=== PATIENT | female | born 1950 | race Caucasian/White ===

== ENCOUNTER 2020-08-28 11:00 | Outpatient (RCR) | payer MEDICARE, SELFPAY | END 2020-08-30 23:55 | disposition home or self-care (01) | LOC: HO.PAOS 11:00 | PROVIDERS: Visit Provider Psychologist | DX: F31.81 Bipolar II disorder (principal) | CPT/HCPCS: 90834 ==

== ENCOUNTER 2020-11-26 09:10 | Outpatient (REF) | payer MEDICARE, SELFPAY ==
[2020-11-26 10:26] LABS: Hematocrit 46.7 % (37-47); Hemoglobin 15.3 g/dl (12.0-16.0); Mean Corpuscular HGB Conc 32.8 g/dl (31.0-35.0); Mean Corpuscular Hemoglobin 31.3 pg (27.0-33.0); Mean Corpuscular Volume 95.5 fL (80-98); PLT CLUMP 1; Red Blood Count 4.89 X10*6/uL (4.20-5.50); Red Cell Distribution Width 15.3 % (11.0-16.0)
[2020-11-26 10:37] LABS: Estimated Average Glucose 100 mg/dL; Hemoglobin A1c % 5.1 %
[2020-11-26 10:40] LABS: Alanine Aminotransferase 26 U/L (0-31); Albumin Level 4.5 g/dL (3.5-5.0); Alkaline Phosphatase 110 U/L (39-117); Anion Gap 15 (12-20); Aspartate Amino Transferase 33 U/L (5-31); Bilirubin Total 0.5 mg/dL (0.0-1.0); Blood Urea Nitrogen 18 mg/dL (9-16); Calcium 9.3 mg/dL (8.4-10.2); Carbon Dioxide 23 mmol/L (22-29); Chloride 108 mmol/L (96-108); Cholesterol 212 mg/dL; Estimated Glomerular Filt Rate 46; Glucose Fasting 77 mg/dL (60-99); HDL Cholesterol 80 mg/dL; LDL Cholesterol Calculated 113 mg/dl; Potassium 4.7 mmol/L (3.3-5.1); Sodium 141 mmol/L (135-145); Total Protein 7.1 g/dL (6.5-8.0); Triglycerides 96 mg/dL
[2020-11-26 10:58] LABS: Free T4 (Free Thyroxine) 0.59 ng/dL (0.71-1.85); TSH reflex Free T4 38.73 uIU/mL (0.32-4.0)
[2020-11-26 11:00] LABS: White Blood Count 5.9 X10*3/uL (4.8-10.8)
[2020-11-27 05:32] LABS: Triiodothyronine T3 Free 1.7 pg/mL (2.3-4.2)
== END 2020-11-26 09:11 | disposition home or self-care (01) ==
LOC: HO.LAB 09:10
PROVIDERS: PCP Physician Assistant; Visit Provider Physician Assistant
DX: I25.118 Atherosclerotic heart disease of native coronary artery with other forms of angina pectoris (principal); D72.819 Decreased white blood cell count, unspecified; E03.9 Hypothyroidism, unspecified
CPT/HCPCS: 36415; 80053; 80061; 83036; 84439; 84443; 84481; 85027

== ENCOUNTER 2021-01-14 07:58 | Outpatient (REF) | payer MEDICARE, SELFPAY ==
[2021-01-14 08:33] LABS: Imm Gran Abs Auto 0.02 X10*3/uL (0.00-0.03); Imm Gran Pct Auto 0.4 % (0.0-0.4); MANUAL DIFF FLAG SCAN; PLT CLUMP 1; Red Cell Distribution Width 13.6 % (11.0-16.0); SCAN SMEAR FLAG 1
[2021-01-14 08:35] LABS: Basophils Absolute Auto 0.1 X10*3/uL (0.0-0.2); Basophils Percent Auto 1.5 % (0-2); Eosinophils Absolute Auto 0.4 X10*3/uL (0.0-0.4); Hematocrit 46.5 % (37-47); Lymphocytes Absolute Auto 2.4 X10*3/uL (1.2-4.9); Lymphocytes Percent Auto 45.1 % (20-40); Mean Corpuscular HGB Conc 32.3 g/dl (31.0-35.0); Mean Corpuscular Hemoglobin 30.9 pg (27.0-33.0); Mean Corpuscular Volume 95.9 fL (80-98); Monocytes Absolute Auto 0.5 X10*3/uL (0.1-1.2); Monocytes Percent Auto 8.3 % (2-11); Neutrophils Percent Auto 37.7 % (45-73); Red Blood Count 4.85 X10*6/uL (4.20-5.50); White Blood Count 5.4 X10*3/uL (4.8-10.8)
[2021-01-14 08:58] LABS: Alanine Aminotransferase 23 U/L (0-31); Alkaline Phosphatase 84 U/L (39-117); Anion Gap 15 (12-20); Aspartate Amino Transferase 32 U/L (5-31); Bilirubin Total 0.4 mg/dL (0.0-1.0); Blood Urea Nitrogen 17 mg/dL (9-16); Calcium 9.2 mg/dL (8.4-10.2); Carbon Dioxide 20 mmol/L (22-29); Chloride 109 mmol/L (96-108); Estimated Glomerular Filt Rate 59; Glucose Random 89 mg/dL (60-115); Potassium 4.8 mmol/L (3.3-5.1); Sodium 139 mmol/L (135-145); Total Protein 6.6 g/dL (6.5-8.0)
[2021-01-14 09:13] LABS: SLIDE REVIEW VERIFIED
[2021-01-14 09:20] LABS: TSH reflex Free T4 5.87 uIU/mL (0.32-4.0)
[2021-01-14 09:51] LABS: Free T4 (Free Thyroxine) 0.83 ng/dL (0.71-1.85)
== END 2021-01-14 07:59 | disposition home or self-care (01) ==
LOC: HO.LAB 07:58
PROVIDERS: Internal Medicine Medical Oncology; PCP Physician Assistant; Visit Provider Physician Assistant
DX: E03.9 Hypothyroidism, unspecified (principal); D72.819 Decreased white blood cell count, unspecified
CPT/HCPCS: 36415; 80053; 84439; 84443; 85025

== ENCOUNTER 2021-03-15 09:05 | Outpatient (REF) | payer MEDICARE, SELFPAY ==
[2021-03-15 10:57] LABS: Free T4 (Free Thyroxine) 0.96 ng/dL (0.71-1.85); Thyroid Stimulating Hormone 2.28 uIU/mL (0.32-4.0)
== END 2021-03-15 09:06 | disposition home or self-care (01) ==
LOC: HO.LAB 09:05
PROVIDERS: Internal Medicine; PCP Physician Assistant; Visit Provider Physician Assistant
DX: E03.9 Hypothyroidism, unspecified (principal)
CPT/HCPCS: 36415; 84439; 84443

== ENCOUNTER 2021-03-19 12:08 | Outpatient (REF) | payer MEDICARE, SELFPAY ==
[2021-03-19 13:45] LABS: Anion Gap 12 (12-20); Blood Urea Nitrogen 12 mg/dL (9-16); Calcium 9.6 mg/dL (8.4-10.2); Carbon Dioxide 20 mmol/L (22-29); Chloride 112 mmol/L (96-108); Estimated Glomerular Filt Rate > 60; Glucose Random 93 mg/dL (60-115); Potassium 4.2 mmol/L (3.3-5.1); Sodium 140 mmol/L (135-145)
[2021-03-19 13:49] LABS: B Type Natriuretic Peptide 93 pg/mL (<100)
== END 2021-03-19 12:09 | disposition home or self-care (01) ==
LOC: HO.LAB 12:08
PROVIDERS: PCP Physician Assistant; Visit Provider Physician Assistant
DX: I25.118 Atherosclerotic heart disease of native coronary artery with other forms of angina pectoris (principal)
CPT/HCPCS: 36415; 80048; 83880

== ENCOUNTER 2021-05-24 12:33 | Outpatient (REF) | payer MEDICARE, SELFPAY ==
[2021-05-24 13:31] LABS: Basophils Percent Auto 0.7 % (0-2); Eosinophils Absolute Auto 0.1 X10*3/uL (0.0-0.4); Eosinophils Percent Auto 2.5 % (0-4); Hemoglobin 15.5 g/dl (12.0-16.0); Imm Gran Abs Auto 0.02 X10*3/uL (0.00-0.03); Imm Gran Pct Auto 0.4 % (0.0-0.4); Lymphocytes Absolute Auto 2.3 X10*3/uL (1.2-4.9); MANUAL DIFF FLAG SCAN; Mean Corpuscular Hemoglobin 30.4 pg (27.0-33.0); Mean Corpuscular Volume 92.2 fL (80-98); Mean Platelet Volume 13.2 fL (9.4-12.3); Monocytes Absolute Auto 0.4 X10*3/uL (0.1-1.2); Monocytes Percent Auto 6.7 % (2-11); Neutrophils Absolute Auto 2.8 X10*3/uL (2.0-8.3); Neutrophils Percent Auto 49.7 % (45-73); PLT CLUMP 1; Red Cell Distribution Width 14.1 % (11.0-16.0); SCAN SMEAR FLAG 1
[2021-05-24 13:45] LABS: Alanine Aminotransferase 21 U/L (0-31); Albumin Level 4.3 g/dL (3.5-5.0); Alkaline Phosphatase 88 U/L (39-117); Anion Gap 14 (12-20); Aspartate Amino Transferase 27 U/L (5-31); Bilirubin Total 0.5 mg/dL (0.0-1.0); Blood Urea Nitrogen 11 mg/dL (9-16); Calcium 9.9 mg/dL (8.4-10.2); Carbon Dioxide 23 mmol/L (22-29); Chloride 110 mmol/L (96-108); Estimated Glomerular Filt Rate > 60; Glucose Random 96 mg/dL (60-115); Potassium 4.7 mmol/L (3.3-5.1); Sodium 142 mmol/L (135-145); Total Protein 6.6 g/dL (6.5-8.0)
[2021-05-24 13:48] LABS: Valproate 33.8 mcg/mL (50.0-100.0)
[2021-05-24 13:51] LABS: Platelet Count 109 X10*3/uL (160-400); White Blood Count 5.7 X10*3/uL (4.8-10.8)
[2021-05-24 13:52] LABS: SLIDE REVIEW VERIFIED
[2021-05-24 14:07] LABS: Thyroid Stimulating Hormone 2.22 uIU/mL (0.32-4.0)
[2021-05-30 13:37] LABS: Topiramate 2.9 mcg/mL (see note)
== END 2021-05-24 12:34 | disposition home or self-care (01) ==
LOC: HO.LAB 12:33
PROVIDERS: PCP Physician Assistant; Visit Provider Psychiatry & Neurology Psychiatry
DX: E03.9 Hypothyroidism, unspecified (principal); Z51.81 Encounter for therapeutic drug level monitoring; Z79.899 Other long term (current) drug therapy
CPT/HCPCS: 36415; 80053; 80164; 80201; 84443; 85025

== ENCOUNTER 2021-10-17 13:55 | Outpatient (REF) | payer MEDICARE, SELFPAY ==
[2021-10-17 14:41] LABS: Hematocrit 45.7 % (37.0-47.0); Hemoglobin 14.9 g/dl (12.0-16.0); Mean Corpuscular HGB Conc 32.6 g/dl (31.0-35.0); Mean Corpuscular Hemoglobin 30.1 pg (27.0-33.0); Mean Corpuscular Volume 92.3 fL (80.0-98.0); Mean Platelet Volume 11.6 fL (9.4-12.3); Platelet Count 153 X10*3/uL (160-400); Red Blood Count 4.95 X10*6/uL (4.20-5.50); Red Cell Distribution Width 13.4 % (11.0-16.0); White Blood Count 6.6 X10*3/uL (4.8-10.8)
[2021-10-17 14:49] LABS: Estimated Average Glucose 108 mg/dL; Hemoglobin A1c % 5.4 %
[2021-10-17 15:11] LABS: Alanine Aminotransferase 19 U/L (0-31); Albumin Level 4.1 g/dL (3.5-5.0); Alkaline Phosphatase 102 U/L (39-117); Anion Gap 11 (12-20); Aspartate Amino Transferase 21 U/L (5-31); Bilirubin Total 0.4 mg/dL (0.0-1.0); Blood Urea Nitrogen 14 mg/dL (9-16); Calcium 10.2 mg/dL (8.4-10.2); Carbon Dioxide 28 mmol/L (22-29); Chloride 105 mmol/L (96-108); Cholesterol 164 mg/dL; Estimated Glomerular Filt Rate 60; Glucose Fasting 98 mg/dL (60-99); HDL Cholesterol 57 mg/dL; LDL Cholesterol Calculated 90 mg/dl; Potassium 4.6 mmol/L (3.3-5.1); Sodium 139 mmol/L (135-145); Total Protein 6.5 g/dL (6.5-8.0); Triglycerides 85 mg/dL
[2021-10-17 16:13] LABS: Free T4 (Free Thyroxine) 1.13 ng/dL (0.71-1.85)
== END 2021-10-17 13:56 | disposition home or self-care (01) ==
LOC: HO.LAB 13:55
PROVIDERS: PCP Physician Assistant; Visit Provider Physician Assistant
DX: I25.118 Atherosclerotic heart disease of native coronary artery with other forms of angina pectoris (principal); I10 Essential (primary) hypertension; E03.9 Hypothyroidism, unspecified
CPT/HCPCS: 36415; 80053; 80061; 83036; 84439; 84443; 85027

== ENCOUNTER 2022-01-13 10:25 | Outpatient (REF) | payer OTHER, SELFPAY ==
[2022-01-13 12:12] LABS: Hematocrit 48.1 % (37.0-47.0); Hemoglobin 15.8 g/dl (12.0-16.0); Mean Corpuscular HGB Conc 32.8 g/dl (31.0-35.0); Mean Corpuscular Hemoglobin 30.7 pg (27.0-33.0); Mean Corpuscular Volume 93.6 fL (80.0-98.0); Mean Platelet Volume 12.4 fL (9.4-12.3); Platelet Count 114 X10*3/uL (160-400); Red Blood Count 5.14 X10*6/uL (4.20-5.50); Red Cell Distribution Width 14.2 % (11.0-16.0)
[2022-01-13 12:19] LABS: Alanine Aminotransferase 19 U/L (0-31); Albumin Level 4.2 g/dL (3.5-5.0); Alkaline Phosphatase 97 U/L (39-117); Anion Gap 15 (12-20); Aspartate Amino Transferase 22 U/L (5-31); Bilirubin Total 0.7 mg/dL (0.0-1.0); Blood Urea Nitrogen 12 mg/dL (9-16); Calcium 10.2 mg/dL (8.4-10.2); Carbon Dioxide 21 mmol/L (22-29); Chloride 111 mmol/L (96-108); Cholesterol 170 mg/dL; Estimated Glomerular Filt Rate > 60; Glucose Fasting 87 mg/dL (60-99); HDL Cholesterol 55 mg/dL; LDL Cholesterol Calculated 96 mg/dl; Potassium 4.7 mmol/L (3.3-5.1); Sodium 142 mmol/L (135-145); Total Protein 6.7 g/dL (6.5-8.0); Triglycerides 98 mg/dL
[2022-01-13 12:44] LABS: TSH reflex Free T4 0.72 uIU/mL (0.32-4.0)
== END 2022-01-13 10:26 | disposition home or self-care (01) ==
LOC: HO.LAB 10:25
PROVIDERS: PCP Physician Assistant; Visit Provider Physician Assistant
DX: E03.9 Hypothyroidism, unspecified (principal); I25.118 Atherosclerotic heart disease of native coronary artery with other forms of angina pectoris
CPT/HCPCS: 36415; 80053; 80061; 84443; 85027

== ENCOUNTER 2022-03-12 11:20 | Outpatient (REF) | payer OTHER, SELFPAY | END 2022-03-12 11:21 | disposition home or self-care (01) | LOC: HO.XRAY 11:20 | PROVIDERS: PCP Physician Assistant; Visit Provider Internal Medicine | DX: Z13.89 Encounter for screening for other disorder (principal) ==

== ENCOUNTER 2022-03-12 11:31 | Emergency (ER) | payer OTHER, SELFPAY ==
--- NOTE | 2022-03-12 | ECG_ITS ---
Test Reason : sob Blood Pressure : / mmHG Vent. Rate : 069 BPM Atrial Rate : 069 BPM P-R Int : 172 ms QRS Dur : 074 ms QT Int : 400 ms P-R-T Axes : 039 070 015 degrees QTc Int : 428 ms Poor data quality Normal sinus rhythm Nonspecific T wave abnormality Abnormal ECG When compared with ECG of 08-APR-2020 10:03, Poor data quality in current ECG precludes serial comparison Referred By: Charlene Ríos Electronically Signed By:POOL DAN MD
--- NOTE | ~2022-03-12 | XR_ITS ---
EXAMINATION: XR CHEST CLINICAL INFORMATION: Dyspnea COMPARISON: Chest CT March 2020 Previous chest x-ray March 2020 TECHNIQUE: Frontal view of the chest was obtained. FINDINGS: The cardiac and mediastinal contours are stable. There is a small 2 mm dense nodule in the left midlung that is stable and when compared with previous CT probably corresponds to a calcified granuloma. The lungs are otherwise clear. There is no pleural effusion or pneumothorax. There are degenerative changes of the spine and shoulders. XR/XR chest 1V IMPRESSION: No evidence for acute disease in the chest.
[2022-03-12 11:36] VITALS: PULSE 97; RESP 24; TEMP 36.6; O2SAT 98; BMI 25.8
--- NOTE | 2022-03-12 11:44 | ED.SOB ---
HPI - SOB/Dyspnea General Chief Complaint: Dyspnea Stated Complaint: sob Time Seen by Provider: 03/12/22 11:35 Source: patient Mode of arrival: other (WC from radiology ) Limitations: no limitations History of Present Illness HPI Narrative: 71 yo female with hx of bipolar disorder, hypothyroidism, HLD, heart problem but records show normal cath at [facility] 2020 comes in with c/o COVID dx 02/21 she did have 2 Pfizer vaccines. She notes that the past 4 days she has had cough, shortness of breath and mucous production. She denies any chest pain. She was in our radiology department having CXR from PCP when she had a coughing fit and shortness of breath. Sent over to ED. 97% on RA. MD elicited complaint: shortness of breath and cough Pertinent past history: other (dx with COVID 02/21 s/p Pfizer vaccine 2 doses, no treatment after diagnosis on 02/21) Onset (ago): day(s) (4) Context: recent illness and anxiety Timing: progressively worsening Severity: moderate Exacerbating factors: coughing Relieving factors: rest Known history of: other (COVID 02/21) Associated symptoms: cough and sputum production Treatment prior to arrival: none Related Data Home Medications Medication Instructions Recorded Confirmed alprazolam 0.25 mg tablet 0.25 mg PO TID 09/10/20 01/15/22 bimatoprost 0.01 % eye drops 1 drp ophthalmic (eye) 09/10/20 01/15/22 cyclosporine 0.05 % eye drops in a 1 drp ophthalmic (eye) BID 09/10/20 01/15/22 dropperette divalproex 250 mg tablet,extended 250 mg PO DAILY 09/10/20 01/15/22 release 24 hr omega-3 fatty acids 1,000 mg 1,000 mg PO DAILY 09/10/20 01/15/22 capsule (Fish Oil Concentrate) topiramate 50 mg tablet 50 mg PO DAILY 09/10/20 01/15/22 aspirin 81 mg tablet,delayed 11/26/20 01/15/22 release multivit with 1 tab PO DAILY 11/26/20 01/15/22 yuifehra-ihnd-LD-lutein 8 mg iron-400 mcg-300 mcg tablet (Centrum Silver Women) erythromycin 5 mg/gram (0.5 %) eye 0 mg ophthalmic (eye) 03/19/21 01/15/22 ointment Previous Rx's Medication Instructions Recorded rosuvastatin 40 mg tablet 40 mg PO DAILY #90 tabs 04/01/21 doxycycline hyclate 100 mg tablet 100 mg PO BID 7 days #14 tabs 10/09/21 clindamycin HCl 300 mg capsule 300 mg PO Q6H 7 days #28 caps 10/17/21 docusate sodium 100 mg capsule 100 mg PO DAILY 30 days #30 caps 10/17/21 (Colace) sennosides 8.6 mg capsule (senna) 17.2 mg PO BEDTIME 30 days #60 caps 10/17/21 amoxicillin 875 mg-potassium 1 tab PO BID 7 days #14 tabs 10/21/21 clavulanate 125 mg tablet (Augmentin) Synthroid 88 mcg tablet 88 mcg PO DAILY 90 days #90 tabs 01/23/22 (levothyroxine) albuterol sulfate 90 mcg/actuation 2 puff inhalation QID PRN 03/12/22 aerosol inhaler shortness of breath or wheezing #6.7 grams amoxicillin 875 mg-potassium 1 tab PO BID #14 tabs 03/12/22 clavulanate 125 mg tablet benzonatate 100 mg capsule 100 mg PO TID PRN cough #20 caps 03/12/22 dextromethorphan 5 mg-guaifenesin 20 ml PO Q4-6H PRN cough 7 days 03/12/22 50 mg/5 mL oral liquid (Robitussin #118 mL Cough-Chest Congestion DM) Allergies Allergy/AdvReac Type Severity Reaction Status Date / Time alendronate sodium Allergy Unknown stomach Verified 03/12/22 11:36 upset sulfamethoxazole Allergy Unknown ITCHING Verified 03/12/22 11:36 trimethoprim Allergy Unknown ITCHING Verified 03/12/22 11:36 clindamycin AdvReac Intermediate Abdominal Verified 03/12/22 11:36 Pain Review of Systems Review of Systems: Constitutional : No Fever, No Chills ENT/Mouth : No sore throat, No Rhinorrhea, No Swallowing Difficulty Eyes: No Eye Pain, No Swelling, No Redness Cardiovascular : No Chest Pain, positive SOB, No Orthopnea, no Edema Respiratory : pos Cough, pos Sputum, No Wheezing, positive dyspnea Gastrointestinal : No Nausea, No Vomiting, No Diarrhea, No abdominal Pain, No Hematochezia, No Melena Genitourinary : No Dysuria, No Urinary Frequency, No Hematuria Musculoskeletal : No joint pain, No Myalgias Skin : No Skin Lesions, No rash Neuro : No Weakness, No Numbness, No Dizziness, No Headache Psych : No Anxiety/Panic, No Depression Heme/Lymph: No Bruising, No Lymphadenopathy Endocrine : No Polyuria, No Polydipsia All other systems reviewed and are negative [facility] Past Medical History Attestation statement: The following information was validated with the patient. Source: old records reviewed Medical History Absolute glaucoma, bilateral Bipolar 1 disorder Bronchitis CAD (coronary artery disease) COVID-19 virus infection Hypothyroidism Skin lesion of face Surgical History H/O cardiac catheterization No pertinent past surgical history Family History Family History Father No problems noted. Mother Chronic mental illness Family/Other Chronic mental illness Social History Social History Housing: House Alcohol intake: never Patient Tobacco Use Status: Never used Tobacco e-Cigarette/Vaping Use: Never Used Second Hand Smoke Exposure: No Use of substances other than those prescribed or required for medical reasons: No Advance Directives: No Advance Directives Information Provided: No Current occupational status: retired Cognitive needs: No Hearing needs: No Vision needs: No Physical Exam Vital Signs: Vital Signs: Last Vital Signs Temp 97.8 F 03/12/22 11:36 Pulse 65 03/12/22 13:10 Resp 20 03/12/22 13:10 BP 100/63 03/12/22 13:10 Pulse Ox 95 03/12/22 13:10 O2 Del Method 03/12/22 13:10 BMI result Body Mass Index 25.8 Appearance: Alert. Oriented X3. No acute distress. Anxiouis Eyes: Pupils equal, round and reactive to light. ENT: Pharynx normal. Neck: Normal inspection. Neck supple. CVS: Normal heart rate and rhythm. Pulses normal. Respiratory: No respiratory distress. Breath sounds mild diffuse end exp wheezes, dry peristent cough Abdomen: Soft and nontender. Skin: Skin warm and dry. Normal skin color. Normal skin turgor. Extremities: No lower extremity edema. No calf ttp Neuro: Oriented X 3. No motor deficit. No sensory deficit. Course Course Course Narrative: ddimer negative trop negative nonischemic EKG CXR no pneumonia cough medicine ordered - persitent barking cough improvement with robitussin AC no hypoxia cough at times is forced stable for DC MDM - SOB/Dyspnea MDM Narrative Medical decision making narrative: 71 yo female with hx of bipolar disorder, hypothyroidism, HLD, heart problem but records show normal cath at [facility] 2019 comes in with c/o cough wheezing and shortness of breath but no chest pain post COVID dx 02/21. Symptoms started 4 days ago. At this time will obtain labs, EKG, CXR, ddimer, neb treatment and anti tussive - suspect bronchitis vs pneumonia Lab Data Result diagrams: 03/12/22 12:11 03/12/22 12:11 Labs: Lab Results 03/12/22 03/12/22 03/12/22 Range/Units 12:00 12:11 12:11 WBC 5.1 (4.8-10.8) X10*3/uL RBC 5.26 (4.20-5.50) X10*6/uL Hgb 16.0 (12.0-16.0) g/dl Hct 48.0 H (37.0-47.0) % MCV 91.3 (80.0-98.0) fL MCH 30.4 (27.0-33.0) pg MCHC 33.3 (31.0-35.0) g/dl RDW 13.9 (11.0-16.0) % Plt Count 154 L D (160-400) X10*3/uL MPV 12.0 (9.4-12.3) fL Immature Gran % (Auto) 0.2 (0.0-0.4) % Neut % (Auto) 36.6 L (45-73) % Lymph % (Auto) 47.8 H (20-40) % Wilson % (Auto) 9.1 (2-11) % Eos % (Auto) 5.5 H (0-4) % Baso % (Auto) 0.8 (0-2) % Lymph # (Auto) 2.4 (1.2-4.9) X10*3/uL Wilson # (Auto) 0.5 (0.1-1.2) X10*3/uL Eos # (Auto) 0.3 (0.0-0.4) X10*3/uL Baso # (Auto) 0.0 (0.0-0.2) X10*3/uL Abs Immat Gran (auto) 0.01 (0.00-0.03) X10*3/uL Absolute Neuts (auto) 1.9 L (2.0-8.3) x10*3/uL Absolute Nucleated RBC 0.000 (0.0-0.012) X10*3/uL Nucleated RBC % (auto) 0.0 (0.0-0.2) /100WBC D-Dimer High Sensitivty < 150 NG/ML Sodium (135-145) mmol/L Potassium (3.3-5.1) mmol/L Chloride (96-108) mmol/L Carbon Dioxide (22-29) mmol/L Anion Gap (12-20) BUN (9-16) mg/dL Creatinine (0.5-1.4) mg/dL Estim Creat Clear Calc Estimated GFR Random Glucose (60-115) mg/dL Calcium (8.4-10.2) mg/dL Magnesium (1.6-2.6) mg/dL Total Bilirubin (0.0-1.0) mg/dL Direct Bilirubin (0.0-0.5) mg/dL AST (5-31) U/L ALT (0-31) U/L Alkaline Phosphatase (39-117) U/L Troponin I High Sens (<3.5-17.0) ng/L Total Protein (6.5-8.0) g/dL Albumin (3.5-5.0) g/dL Valproic Acid (50.0-100.0) mcg/mL COVID-19 (VIC) Negative (Negative) COVID-19 Clin Com See Note 03/12/22 03/12/22 Range/Units 12:11 12:11 WBC (4.8-10.8) X10*3/uL RBC (4.20-5.50) X10*6/uL Hgb (12.0-16.0) g/dl Hct (37.0-47.0) % MCV (80.0-98.0) fL MCH (27.0-33.0) pg MCHC (31.0-35.0) g/dl RDW (11.0-16.0) % Plt Count (160-400) X10*3/uL MPV (9.4-12.3) fL Immature Gran % (Auto) (0.0-0.4) % Neut % (Auto) (45-73) % Lymph % (Auto) (20-40) % Wilson % (Auto) (2-11) % Eos % (Auto) (0-4) % Baso % (Auto) (0-2) % Lymph # (Auto) (1.2-4.9) X10*3/uL Wilson # (Auto) (0.1-1.2) X10*3/uL Eos # (Auto) (0.0-0.4) X10*3/uL Baso # (Auto) (0.0-0.2) X10*3/uL Abs Immat Gran (auto) (0.00-0.03) X10*3/uL Absolute Neuts (auto) (2.0-8.3) x10*3/uL Absolute Nucleated RBC (0.0-0.012) X10*3/uL Nucleated RBC % (auto) (0.0-0.2) /100WBC D-Dimer High Sensitivty NG/ML Sodium 142 (135-145) mmol/L Potassium 3.9 (3.3-5.1) mmol/L Chloride 108 (96-108) mmol/L Carbon Dioxide 27 (22-29) mmol/L Anion Gap 11 L (12-20) BUN 5 L D (9-16) mg/dL Creatinine 0.85 (0.5-1.4) mg/dL Estim Creat Clear Calc 66.0 Estimated GFR > 60 Random Glucose 98 (60-115) mg/dL Calcium 9.7 (8.4-10.2) mg/dL Magnesium 2.2 (1.6-2.6) mg/dL Total Bilirubin 0.6 (0.0-1.0) mg/dL Direct Bilirubin 0.2 (0.0-0.5) mg/dL AST 26 (5-31) U/L ALT 26 (0-31) U/L Alkaline Phosphatase 106 (39-117) U/L Troponin I High Sens 3.9 (<3.5-17.0) ng/L Total Protein 6.7 (6.5-8.0) g/dL Albumin 4.2 (3.5-5.0) g/dL Valproic Acid 35.7 L (50.0-100.0) mcg/mL COVID-19 (VIC) (Negative) COVID-19 Clin Com ECG Data Attestation: I personally reviewed and interpreted this ECG as follows: ECG interpretation date: 03/12/22 ECG interpretation time: 11:44 Interpretation: Rate: 69 Rhythm: NSR [place]: mpr,a; Normal P waves. Normal KYLEIGH. Normal QRS complex. ST T wave : no ALEX, nonspecific qTC: normal prior studies: no acute ischemia The study has been interpreted contemporaneously by me. . Discharge Plan Discharge Clinical Impression: Bronchitis Patient Disposition: Home, Self-Care Instructions: Acute Bronchitis (ED) Additional Instructions: return to ED for any worsening symptoms or concerns normal chest xray, ddimer negative for blood clots, given cough medicine in the emergency department Prescriptions: New albuterol sulfate 90 mcg/actuation HFA aerosol inhaler 2 puff inhalation QID PRN (Reason: shortness of breath or wheezing) Qty: 6.7 0RF amoxicillin-pot clavulanate 875-125 mg tablet 1 tab PO BID Qty: 14 0RF benzonatate 100 mg capsule 100 mg PO TID PRN (Reason: cough) Qty: 20 0RF No Action rosuvastatin 40 mg tablet 40 mg PO DAILY Qty: 90 4RF senna 8.6 mg capsule 17.2 mg PO BEDTIME 30 Days Qty: 60 1RF levothyroxine [Synthroid] 88 mcg tablet 88 mcg PO DAILY 90 Days Qty: 90 1RF Robitussin Cough-Chest Dontrell DM 5-50 mg/5 mL liquid 20 ml PO Q4-6H PRN (Reason: cough) 7 Days Qty: 118 0RF aspirin [Aspir-81] 81 mg Tablet,Delayed Release (Dr/Ec) Centrum Silver Women 8 mg iron-400 mcg-300 mcg Tablet 1 tab PO DAILY topiramate 50 mg tablet 50 mg PO DAILY divalproex 250 mg tablet extended release 24 hr 250 mg PO DAILY alprazolam 0.25 mg tablet 0.25 mg PO TID omega-3 fatty acids [Fish Oil Concentrate] 1,000 mg capsule 1,000 mg PO DAILY Lumigan 0.01 % drops 1 drp ophthalmic (eye) Restasis 0.05 % dropperette 1 drp ophthalmic (eye) BID erythromycin 5 mg/gram (0.5 %) ointment 0 mg ophthalmic (eye) doxycycline hyclate 100 mg tablet 100 mg PO BID 7 Days Qty: 14 0RF amoxicillin-pot clavulanate [Augmentin] 875-125 mg tablet 1 tab PO BID 7 Days Qty: 14 0RF docusate sodium [Colace] 100 mg capsule 100 mg PO DAILY 30 Days Qty: 30 1RF clindamycin HCl 300 mg capsule 300 mg PO Q6H 7 Days Qty: 28 0RF Referrals: Hussein Almeida PA-C [Primary Care Provider] - 2 days (if not better)
[2022-03-12] MEDS: Benzonatate 100 MG CAPSULE PO (12:15)
[2022-03-12 12:16] LABS: MANUAL DIFF FLAG NO
[2022-03-12 12:19] LABS: COVID-19 Test Negative (Negative)
[2022-03-12 12:19] LABS: Basophils Percent Auto 0.8 % (0-2); Eosinophils Absolute Auto 0.3 X10*3/uL (0.0-0.4); Eosinophils Percent Auto 5.5 % (0-4); Imm Gran Abs Auto 0.01 X10*3/uL (0.00-0.03); Imm Gran Pct Auto 0.2 % (0.0-0.4); Lymphocytes Absolute Auto 2.4 X10*3/uL (1.2-4.9); Lymphocytes Percent Auto 47.8 % (20-40); Mean Corpuscular HGB Conc 33.3 g/dl (31.0-35.0); Mean Corpuscular Hemoglobin 30.4 pg (27.0-33.0); Mean Corpuscular Volume 91.3 fL (80.0-98.0); Monocytes Absolute Auto 0.5 X10*3/uL (0.1-1.2); Monocytes Percent Auto 9.1 % (2-11); Neutrophils Absolute Auto 1.9 x10*3/uL (2.0-8.3); Neutrophils Percent Auto 36.6 % (45-73); Platelet Count 154 X10*3/uL (160-400); Red Blood Count 5.26 X10*6/uL (4.20-5.50); Red Cell Distribution Width 13.9 % (11.0-16.0); White Blood Count 5.1 X10*3/uL (4.8-10.8)
[2022-03-12 12:27] LABS: D Dimer High Sensitivity < 150 NG/ML
[2022-03-12 12:36] LABS: Alanine Aminotransferase 26 U/L (0-31); Albumin Level 4.2 g/dL (3.5-5.0); Alkaline Phosphatase 106 U/L (39-117); Anion Gap 11 (12-20); Aspartate Amino Transferase 26 U/L (5-31); Bilirubin Direct 0.2 mg/dL (0.0-0.5); Bilirubin Total 0.6 mg/dL (0.0-1.0); Blood Urea Nitrogen 5 mg/dL (9-16); Calcium 9.7 mg/dL (8.4-10.2); Carbon Dioxide 27 mmol/L (22-29); Chloride 108 mmol/L (96-108); Estimated Glomerular Filt Rate > 60; Glucose Random 98 mg/dL (60-115); Magnesium 2.2 mg/dL (1.6-2.6); Potassium 3.9 mmol/L (3.3-5.1); Sodium 142 mmol/L (135-145); Total Protein 6.7 g/dL (6.5-8.0)
[2022-03-12 12:42] LABS: Troponin-I High Sensitivity 3.9 ng/L (<3.5-17.0)
[2022-03-12] MEDS: Albuterol Sulfate (0.083%) 2.5 MG/3 ML VIAL.NEB INHALE (12:42)
[2022-03-12 12:43] VITALS: PULSE 59; RESP 25; O2SAT 95
[2022-03-12 12:47] LABS: Valproate 35.7 mcg/mL (50.0-100.0)
[2022-03-12] MEDS: guaiFEN/Codeine SF 200/20/10ML 10 ML LIQUID 5 ML PO (13:09)
[2022-03-12 13:10] VITALS: BP 100/63; PULSE 65; RESP 20; O2SAT 95
== END 2022-03-12 14:34 | disposition home or self-care (01) ==
PROVIDERS: Emergency Provider Emergency Medicine; PCP Physician Assistant
DX: J40 Bronchitis, not specified as acute or chronic (principal); R06.00 Dyspnea, unspecified; R06.02 Shortness of breath; R05.9 Cough, unspecified; F41.1 Generalized anxiety disorder; F43.0 Acute stress reaction; Z20.822 Contact with and (suspected) exposure to COVID-19; Z79.899 Other long term (current) drug therapy
CPT/HCPCS: 71045; 80048; 80076; 80164; 83735; 84484; 85025; 85379; 87635; 93005; 99283; 99284; 99285

== ENCOUNTER 2022-05-30 09:51 | Outpatient (REF) | payer OTHER, SELFPAY ==
[2022-05-30 10:51] LABS: Hematocrit 45.7 % (37.0-47.0); Hemoglobin 15.1 g/dl (12.0-16.0); Mean Corpuscular Hemoglobin 30.5 pg (27.0-33.0); Mean Corpuscular Volume 92.3 fL (80.0-98.0); Mean Platelet Volume 11.6 fL (9.4-12.3); Platelet Count 142 X10*3/uL (160-400); Red Blood Count 4.95 X10*6/uL (4.20-5.50); Red Cell Distribution Width 14.7 % (11.0-16.0); White Blood Count 5.3 X10*3/uL (4.8-10.8)
[2022-05-30 11:39] LABS: TSH reflex Free T4 1.06 uIU/mL (0.32-4.0)
[2022-05-30 11:40] LABS: Alanine Aminotransferase 18 U/L (0-31); Albumin Level 4.4 g/dL (3.5-5.0); Alkaline Phosphatase 87 U/L (39-117); Anion Gap 15 (12-20); Aspartate Amino Transferase 20 U/L (5-31); Bilirubin Total 0.7 mg/dL (0.0-1.0); Blood Urea Nitrogen 15 mg/dL (9-16); Calcium 9.6 mg/dL (8.4-10.2); Carbon Dioxide 25 mmol/L (22-29); Chloride 107 mmol/L (96-108); Cholesterol 195 mg/dL; Estimated Glomerular Filt Rate > 60; Glucose Fasting 92 mg/dL (60-99); HDL Cholesterol 71 mg/dL; LDL Cholesterol Calculated 109 mg/dl; Potassium 4.6 mmol/L (3.3-5.1); Sodium 142 mmol/L (135-145); Total Protein 6.8 g/dL (6.5-8.0); Triglycerides 75 mg/dL
== END 2022-05-30 09:52 | disposition home or self-care (01) ==
LOC: HO.LAB 09:51
PROVIDERS: PCP Physician Assistant; Visit Provider Physician Assistant
DX: I25.118 Atherosclerotic heart disease of native coronary artery with other forms of angina pectoris (principal); E03.9 Hypothyroidism, unspecified
CPT/HCPCS: 36415; 80053; 80061; 84443; 85027

== ENCOUNTER → 2022-07-24 11:36 | Outpatient (BNVA) | payer OTHER, SELFPAY | PROVIDERS: PCP Physician Assistant; Visit Provider Psychiatry & Neurology Psychiatry | DX: F31.81 Bipolar II disorder (principal); E03.9 Hypothyroidism, unspecified; F41.0 Panic disorder [episodic paroxysmal anxiety] | CPT/HCPCS: 90833; 99212 ==

== ENCOUNTER → 2022-10-30 11:16 | Outpatient (BNVA) | payer OTHER, SELFPAY | PROVIDERS: PCP Physician Assistant; Visit Provider Psychiatry & Neurology Psychiatry | DX: Z13.89 Encounter for screening for other disorder (principal) | CPT/HCPCS: 99212 ==

== ENCOUNTER → 2023-02-27 11:43 | Outpatient (BNVA) | payer OTHER, SELFPAY | PROVIDERS: PCP Physician Assistant; Visit Provider Psychiatry & Neurology Psychiatry | DX: F41.0 Panic disorder [episodic paroxysmal anxiety] (principal); F31.81 Bipolar II disorder | CPT/HCPCS: 90833; 99212 ==

== ENCOUNTER 2023-05-06 09:59 | Outpatient (REF) | payer OTHER, SELFPAY ==
[2023-05-06 10:39] LABS: Hematocrit 46.6 % (37.0-47.0); Hemoglobin 15.3 g/dl (12.0-16.0); Mean Corpuscular HGB Conc 32.8 g/dl (31.0-35.0); Mean Corpuscular Hemoglobin 29.9 pg (27.0-33.0); Mean Corpuscular Volume 91.2 fL (80.0-98.0); PLT CLUMP 1; Red Blood Count 5.11 X10*6/uL (4.20-5.50); Red Cell Distribution Width 13.9 % (11.0-16.0)
[2023-05-06 11:08] LABS: Platelet Count 125 X10*3/uL (160-400); White Blood Count 6.4 X10*3/uL (4.8-10.8)
[2023-05-06 11:19] LABS: Alanine Aminotransferase 18 U/L (0-31); Albumin Level 4.1 g/dL (3.5-5.0); Alkaline Phosphatase 93 U/L (39-117); Anion Gap 12 (12-20); Aspartate Amino Transferase 16 U/L (5-31); Bilirubin Total 0.5 mg/dL (0.0-1.0); Blood Urea Nitrogen 14 mg/dL (9-16); Calcium 9.9 mg/dL (8.4-10.2); Carbon Dioxide 27 mmol/L (22-29); Chloride 110 mmol/L (96-108); Cholesterol 190 mg/dL; Estimated Glomerular Filt Rate 59; Glucose Fasting 94 mg/dL (60-99); HDL Cholesterol 64 mg/dL; LDL Cholesterol Calculated 99 mg/dl; Potassium 4.7 mmol/L (3.3-5.1); Sodium 144 mmol/L (135-145); Total Protein 6.8 g/dL (6.5-8.0); Triglycerides 136 mg/dL
[2023-05-06 11:37] LABS: TSH reflex Free T4 2.17 uIU/mL (0.32-4.0)
== END 2023-05-06 10:00 | disposition home or self-care (01) ==
LOC: HO.LAB 09:59
PROVIDERS: PCP Physician Assistant; Visit Provider Physician Assistant
DX: I25.118 Atherosclerotic heart disease of native coronary artery with other forms of angina pectoris (principal); E03.9 Hypothyroidism, unspecified
CPT/HCPCS: 36415; 80053; 80061; 84443; 85027

== ENCOUNTER 2023-05-07 09:53 | Outpatient (AMB) | payer OTHER, SELFPAY ==
[2023-05-07 10:37] VITALS: BP 120/80; PULSE 57; O2SAT 95; BMI 29.0
--- NOTE | 2023-05-07 10:37 | MHC.PC.OV ---
Vital Signs 05/07/23 10:37 Height 5 ft 7 in Weight 185 lb BMI 29.0 BP 120/80 Blood Pressure Location Rt brachial Position Sitting Pulse 57 Pulse Source Pulse Oximeter Pulse Oximetry (%) 95 Oxygen Delivery Method Room Air Intake Visit Reasons: annual exam Allergies alendronate sodium Allergy (Unknown, Verified 05/07/23 11:11) stomach upset sulfamethoxazole Allergy (Unknown, Verified 05/07/23 11:11) ITCHING trimethoprim Allergy (Unknown, Verified 05/07/23 11:11) ITCHING clindamycin Adverse Reaction (Intermediate, Verified 05/07/23 11:11) Abdominal Pain Medication List - Last Reconciled 05/07/23 by Hussein Almeida PA-C alprazolam 0.25 mg PO TID aspirin divalproex ER 250 mg PO DAILY lifitegrast 5% (Xiidra) 1 drp ophthalmic (eye) BID loteprednol etabonate 0.5% 1 drp ophthalmic (eye) TID rosuvastatin 40 mg PO DAILY Synthroid (levothyroxine) 88 mcg PO DAILY 90 days NS timolol maleate 0.5% 1 drp ophthalmic (eye) QAM topiramate 50 mg PO DAILY Tobacco use date assessed: 05/07/23 Dental Screening Dental Screen Date: 05/07/23 Did you have a dental visit in the last 12 months?: No Did you have a dental problem in the last 6 months where you did not have access to dental care?: No Was dental information given to patient?: Patient declined HPI annual exam HPI Details Patient is a 72-year-old female here today for routine annual physical.? Patient has a past medical history significant for bipolar disorder, generalized anxiety disorder, coronary artery disease, glaucoma, hypothyroidism. .. Hypothyroid: Most recent Tsh stable .? She is now taking levothyroxine 88 mcg daily.? Patient has been working in a better eating habits and has been walking daily.? Of note has gained weight since last office visit PLAN: ? Will continue to use? levothyroxine 88mcg on a daily basis. .. CAD: ? Patient continues on statin and anti-platelet therapy.? She did have a small heart attack in 2019 to which she was evaluated by Cardiology and did go to [facility] for cardiac catheterization though no? stent placement. LDL slightly high at 109. Will continue to work on [employer] to reduce high cholesterol foods .. Bipolar disorder: IS followed by Dr Byers and Dr. Simeon. .? She feels stable on her current mental health medications that are managed by her psychiatrist. .. Glaucoma:? Recently started on new eye drops . Patient is followed by an new electrical prospector-->? Dr. Ibanez Colonoscopy: Dr Ellison in 2014, polyp found benign, repeat 10 years Mammogram: declines mammo Vaccines: Up-to-date with COVID vaccine and tetanus vaccine, declines PCV , declines shingles. declines flu vaccine PFSH Medical History Absolute glaucoma, bilateral Bipolar 1 disorder Bipolar 2 disorder Bronchitis CAD (coronary artery disease) COVID-19 virus infection Hypothyroidism Panic disorder Skin lesion of face Surgical History H/O cardiac catheterization No pertinent past surgical history Family History Father No problems noted. Mother Chronic mental illness Family/Other Chronic mental illness Social History Housing: House Alcohol intake: never Patient Tobacco Use Status: Never used Tobacco e-Cigarette/Vaping Use: Never Used Second Hand Smoke Exposure: No Current occupational status: retired Cognitive needs: No Hearing needs: No Vision needs: Yes (Glasses) Questionnaire PHQ-9 Over the last 2 weeks, how often have you been bothered by any of the following problems? 1. Little interest or pleasure in doing things: not at all 2. Feeling down, depressed, or hopeless: not at all 3. Trouble falling or staying asleep, or sleeping too much: not at all 4. Feeling tired or having little energy: not at all 5. Poor appetite or overeating: not at all 6. Feeling bad about yourself - or that you are a failure or have let yourself or your family down: not at all 7. Trouble concentrating on things, such as reading the newspaper or watching television: not at all 8. Moving or speaking so slowly that other people could have noticed. Or the opposite - being so fidgety or restless that you have been moving around a lot more than usual: not at all 9. Thoughts that you would be better off or of hurting yourself in some way: not at all Total score: 0 Depression Screening Interpretation: Negative 08401 - PHQ-9 Billing: Yes Source: Developed by Drs. Rancho Post, Emelia Echeverria, Ray Jeter and colleagues, with an educational joselyn from [employer]. Thrive Questionnaire Date Thrive assessed: 05/07/23 I am a: Patient What is your living situation today?: I have a steady place to live Within the past 12 months, did the food you bought not last and you didn't have the money to get more?: Never true Within the past 12 months, did you worry whether your food would run out before you got money to buy more?: Never true Do you have trouble paying for medicines?: No Do you have trouble getting transportation to medical appointments?: No Do you have trouble paying your heating and electricity bill?: No Do you have trouble taking care of your child, family member or friend?: No Do you have trouble with day-to-day activities such as bathing, preparing meals, shopping, managing finances, etc.?: No Are you currently unemployed and looking for a job?: No Are you interested in more education?: No Currently or been in a relationship where the following occur: no concerns reported AUDIT C Alcohol Use Questionnaire (AUDIT-C) 1. How often do you have a drink containing alcohol?: Never 3. How often do you have six or more drinks on one occasion?: Never Total Score: 0 Score Reviewed/Action Taken: Yes MACIEL-7 AMB Questionnaire MACIEL-7 Date MACIEL - 7 assessed: 05/07/23 Feeling nervous, anxious, or on edge: 0 = Not at all Not being able to stop or control worryin = Not at all Worrying too much about different things: 0 = Not at all Trouble relaxin = Not at all Being so restless that it is hard to sit still: 0 = Not at all Becoming easily annoyed or irritable: 0 = Not at all Feeling afraid as if something awful might happen: 0 = Not at all Total MACIEL-7 score (0-4 normal; 5-9 mild; 10-14 moderate; 15-21 severe): 0 Source: Developed by Drs. Rancho Post, Emelia Echeverria, Ray Jeter and colleagues, with an educational joselyn from [employer]. MACIEL-7 Assessment Billing MACIEL-7 Assessment Tool: MACIEL-7 Assessment 64769 Review of Systems Const Denies body aches, Denies chills, Denies excessive sweating, Denies fatigue, Denies fever(s) and Denies headache(s) Eyes Denies blurry vision ENT Denies dysphagia, Denies vertigo, Denies dizziness, Denies headache(s), Denies hearing loss and Denies tinnitus Card Denies chest pain, Denies chest pain with activity, Denies syncope, Denies irregular heart rhythm and Denies dyspnea Resp Denies chest congestion, Denies cough, Denies hemoptysis, Denies dyspnea and Denies wheezing GI Denies abdominal pain, Denies melena, Denies hematochezia, Denies coffee ground emesis, Denies dysphagia, Denies diarrhea, Denies nausea and Denies vomiting Denies urinary frequency, Denies dysuria, Denies urinary hesitancy and Denies urinary urgency Musc Denies arthralgias, Denies limited range of motion, Denies muscle cramps and Denies muscle weakness Skin/Breast Denies rash and Denies skin ulcer Neuro Denies Abnormal speech present, Denies confusion, Denies vertigo, Denies dizziness, Denies syncope, Denies headache(s), Denies memory loss and Denies seizure-like activity Psych Denies anxiety, Denies confusion, Denies depression, Denies memory loss, Denies panic attacks and Denies paranoia Endo Denies excessive sweating, Denies fatigue, Denies flushing, Denies polydipsia and Denies polyuria Aller/Immun Denies wheezing Physical exam (Primary Care) Vital Signs: Last Vital Signs Pulse 57 05/07/23 10:37 BP 120/80 05/07/23 10:37 Pulse Ox 95 05/07/23 10:37 Oxygen Delivery Method Room Air 05/07/23 10:37 BMI result Body Mass Index 29.0 Tobacco/Smoking Status: Tobacco use Status Tobacco use date assessed 05/07/23 05/07/23 10:38 Patient Tobacco Use Status Never used Tobacco 05/07/23 10:38 e-Cigarette/Vaping Use Never Used 05/07/23 10:38 PHQ-9: PHQ-9 Score PHQ-9: Total score 0 05/07/23 11:31 Depression Screening Interpretation: Negative Thrive Assessment: Date of Thrive Assessment Date Thrive assessed 05/07/23 05/07/23 10:58 Currently or been in a relationship where the following occur: no concerns reported Const General: cooperative, comfortable, no acute distress, alert and awake; No confusion Orientation/consciousness: oriented to person, oriented to place, patient oriented x3 and No confusion HENMT Head: Yes normocephalic Ears: external ears normal and TM's normal bilaterally Face and sinus: No sinus tenderness Mouth: Normal oral and palatal mucosa present and tongue normal Teeth and gingiva: dentition normal and gingiva normal Throat: Yes posterior oropharynx normal, Yes tonsils normal and Yes uvula midline Eyes Conjunctivae: conjunctivae normal Sclerae: sclerae normal Pupils: Equal, round and reactive pupils present EOM: EOMs intact bilaterally Direct Ophthalmoscopy: No no photophobia Neck Neck: Yes no lymphadenopathy, No tender and Yes no JVD Thyroid: Thyroid normal Carotids: no bruits Chest Chest palpation & inspection: no tenderness Resp Effort & Inspection: normal respiratory effort, no audible wheezes, not labored and no stridor Auscultation: no crackles, no rales, no rhonchi and no wheezes Cardio Jugular venous distension: no JVD Rate: regular rate, not bradycardic and not tachycardic Rhythm: regular rhythm Bruits: no carotid bruits Peripheral pulses: Peripheral pulses 2+ throughout GI Inspection: Yes normal to inspection, No abdominal wall ecchymosis and No visible herniation Palpation (GI): Soft to palpation, nontender, no guarding, not rigid and No hepatosplenomegaly present Auscultation: normoactive bowel sounds General: Yes no CVA tenderness Back/Spine/Pelvis Back: no CVA tenderness and No back tenderness Cervical Spine: cervical ROM normal Thoracic/Lumbar Spine: thoracic and lumbar spine normal to inspection, straight leg raise negative bilaterally, No thoraco-lumbar ROM limited and No lumbar spinal tenderness Skin Lesions: no lesions Rashes: no rashes Wounds: no wounds Neuro General: oriented to person, oriented to place, patient oriented x3, CN's II-XI intact bilaterally and No confusion Cranial nerves: Yes Equal, round and reactive pupils present and Yes Normal accommodation reflex present Cognition (Neuro): normal cognition Speech: No Abnormal speech present Gait exam (Neuro): Normal gait present Motor exam (neuro): 5/5 motor strength present throughout Extrem Right upper extremity: full ROM; no cyanosis Left upper extremity: full ROM; no cyanosis Right lower extremity: no edema Left lower extremity: no edema Psych Appearance: grossly normal Mental Status: mental status grossly normal Affect: normal affect Attitude: cooperative Thought process: Normal thought process present Assessment and Plan Assessment & Plan (1) Annual physical exam: Code(s): Z00.00 - Encounter for general adult medical examination without abnormal findings (2) Hypothyroidism: Code(s): E03.9 - Hypothyroidism, unspecified Qualifiers: Hypothyroidism type: unspecified Qualified Code(s): E03.9 - Hypothyroidism, unspecified Plan: Patient's most recent lipid panel showing appropriate TSH. Will continue her on current dose of levothyroxine 88 mcg. Will continue to follow TSH to assure normal. (3) Thrombocytopenia: Code(s): D69.6 - Thrombocytopenia, unspecified Plan: Patient has stable thrombocytopenia, seems to be idiopathic. No reports of excessive bruising or bleeding. (4) CAD (coronary artery disease): Code(s): I25.10 - Atherosclerotic heart disease of [place] coronary artery without angina pectoris Qualifiers: Associated angina: with stable angina Coronary Disease-Associated Artery/Lesion type: [place] artery [place] vs. transplanted heart: [place] heart Qualified Code(s): I25.118 - Atherosclerotic heart disease of [place] coronary artery with other forms of angina pectoris Plan: Patient has stable coronary artery disease. Continues on aspirin therapy and statin therapy. Most recent lipid panel showing appropriate total cholesterol and LDL. Goal LDL is to remain below 100 only below 70 (5) Bipolar 1 disorder: Code(s): F31.9 - Bipolar disorder, unspecified Plan: Patient continues to follow psychiatry and a mental health therapist. Feels stable from a mental health point of view and her psychiatrist manages all of her mental health medications. Orders: Orders Comprehensive [place]. Panel Fast 6 Months I25.118 - Atherosclerotic heart disease of [place] coronary artery with other forms of angina pectoris Lipid Panel 6 Months I25.118 - Atherosclerotic heart disease of [place] coronary artery with other forms of angina pectoris TSH reflex Free T4 6 Months E03.9 - Hypothyroidism, unspecified Complete Blood Count no Diff 6 Months D69.6 - Thrombocytopenia, unspecified Medications: Refilled Synthroid (levothyroxine) 88 mcg PO DAILY 90 days 90 tabs 2RF NS E03.9 - Hypothyroidism, unspecified rosuvastatin 40 mg PO DAILY 90 tabs 2RF I25.118 - Atherosclerotic heart disease of [place] coronary artery with other forms of angina pectoris Coding Level of Care Code Est Pt Prev Care >65y(22100) Diagnoses Annual physical exam Z00.00 Hypothyroidism E03.9 Hypothyroidism type: unspecified Thrombocytopenia D69.6 CAD (coronary artery disease) I25.118 Associated angina: with stable angina Coronary Disease-Associated Artery/Lesion type: [place] artery [place] vs. transplanted heart: [place] heart Bipolar 1 disorder F31.9 Additional Codes MACIEL-7 Assessment Billing - MACIEL-7 Assessment Tool: MACIEL-7 Assessment [id number] ([id number])
== END 2023-05-07 11:28 | disposition home or self-care (01) ==
PROVIDERS: Visit Provider Physician Assistant
DX: Z00.00 Encounter for general adult medical examination without abnormal findings (principal); E03.9 Hypothyroidism, unspecified; F31.9 Bipolar disorder, unspecified; I25.118 Atherosclerotic heart disease of native coronary artery with other forms of angina pectoris; D69.6 Thrombocytopenia, unspecified
CPT/HCPCS: 99397

== ENCOUNTER → 2023-07-15 12:06 | Outpatient (BNVA) | payer OTHER, SELFPAY | PROVIDERS: PCP Physician Assistant; Visit Provider Psychiatry & Neurology Psychiatry ==

== ENCOUNTER 2023-10-15 11:41 | Outpatient (AMB) | payer OTHER, SELFPAY ==
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
== END 2023-10-15 12:45 | disposition home or self-care (01) ==
LOC: HO.HOP 11:41
PROVIDERS: PCP Physician Assistant; Visit Provider Psychiatry & Neurology Psychiatry
DX: F31.81 Bipolar II disorder (principal); F41.0 Panic disorder [episodic paroxysmal anxiety]
CPT/HCPCS: 99214

== ENCOUNTER → 2023-10-15 11:41 | Outpatient (BNVA) | payer OTHER, SELFPAY | PROVIDERS: PCP Physician Assistant; Visit Provider Psychiatry & Neurology Psychiatry | DX: F31.81 Bipolar II disorder (principal); F41.0 Panic disorder [episodic paroxysmal anxiety] | CPT/HCPCS: 99212 ==

== ENCOUNTER 2023-11-05 11:17 | Outpatient (REF) | payer OTHER, SELFPAY ==
[2023-11-05 12:00] LABS: Hematocrit 48.6 % (37.0-47.0); Hemoglobin 16.1 g/dl (12.0-16.0); Mean Corpuscular HGB Conc 33.1 g/dl (31.0-35.0); Mean Corpuscular Volume 90.5 fL (80.0-98.0); Mean Platelet Volume 11.5 fL (9.4-12.3); Platelet Count 176 X10*3/uL (160-400); Red Blood Count 5.37 X10*6/uL (4.20-5.50); Red Cell Distribution Width 14.6 % (11.0-16.0); White Blood Count 8.5 X10*3/uL (4.8-10.8)
[2023-11-05 12:32] LABS: Alanine Aminotransferase 28 U/L (0-31); Albumin Level 4.1 g/dL (3.5-5.0); Alkaline Phosphatase 100 U/L (39-117); Anion Gap 13 (12-20); Aspartate Amino Transferase 18 U/L (5-31); Bilirubin Total 0.8 mg/dL (0.0-1.0); Blood Urea Nitrogen 18 mg/dL (9-16); Calcium 9.9 mg/dL (8.4-10.2); Carbon Dioxide 25 mmol/L (22-29); Chloride 106 mmol/L (96-108); Cholesterol 167 mg/dL (<200); Estimated Glomerular Filt Rate 57; Glucose Fasting 91 mg/dL (60-99); HDL Cholesterol 53 mg/dL (>40); LDL Cholesterol Calculated 90 mg/dL (<100); Sodium 140 mmol/L (135-145); Total Protein 7.3 g/dL (6.5-8.0); Triglycerides 123 mg/dL (<150)
== END 2023-11-05 11:18 | disposition home or self-care (01) ==
LOC: HO.LAB 11:17
PROVIDERS: Visit Provider Physician Assistant
DX: I25.118 Atherosclerotic heart disease of native coronary artery with other forms of angina pectoris (principal); D69.6 Thrombocytopenia, unspecified; E03.9 Hypothyroidism, unspecified
CPT/HCPCS: 36415; 80053; 80061; 84443; 85027

== ENCOUNTER 2023-11-09 10:51 | Outpatient (AMB) | payer OTHER, SELFPAY ==
[2023-11-09 11:22] VITALS: BP 120/78; PULSE 60; O2SAT 93; BMI 30.5
--- NOTE | 2023-11-09 11:22 | A.OFFPC_ITS ---
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 Accompanied by: Self / Same As Patient Allergies alendronate sodium Allergy (Unknown, Verified 11/09/23 11:45) stomach upset sulfamethoxazole Allergy (Unknown, Verified 11/09/23 11:45) ITCHING trimethoprim Allergy (Unknown, Verified 11/09/23 11:45) ITCHING clindamycin Adverse Reaction (Intermediate, Verified 11/09/23 11:45) Abdominal Pain Medication List - Last Reconciled 11/09/23 by Hussein Almeida PA-C alprazolam 0.25 mg PO TID aspirin divalproex ER 250 mg PO DAILY lifitegrast 5% (Xiidra) 1 drp ophthalmic (eye) BID loteprednol etabonate 0.5% 1 drp ophthalmic (eye) TID rosuvastatin 40 mg PO DAILY Synthroid (levothyroxine) 88 mcg PO DAILY 90 days NS timolol maleate 0.5% 1 drp ophthalmic (eye) QAM topiramate 50 mg PO DAILY Tobacco use date assessed: 11/09/23 Fall risk assessment: No Falls in past year Last assessed Fall Risk: 11/09/23 Dental Screening Dental Screen Date: 11/09/23 Did you have a dental visit in the last 12 months?: Yes Did you have a dental problem in the last 6 months where you did not have access to dental care?: No Was dental information given to patient?: Patient has dentist HPI f/u hypothyroid HPI Details Patient is a 73-year-old female here today for follow-up visit.? Patient has a past medical history significant for bipolar disorder, generalized anxiety disorder, coronary artery disease, glaucoma, hypothyroidism. Recently had right-sided otorrhea was blood. Was seen by ENT specialist and placed on antibiotics. Does have dried blood in the external canal .. Hypothyroid: Most recent Tsh stable .? She is now taking levothyroxine 88 mcg daily.? Patient has been working in a better eating habits and has been walking daily.? Of note has gained weight since last office visit. PLAN: ? Will continue to use? levothyroxine 88mcg on a daily basis. .. CAD: ? Patient continues on statin and anti-platelet therapy.? She did have a small heart attack in 2020 to which she was evaluated by Cardiology and did go to [facility] for cardiac catheterization though no? stent placement. LDL slightly high at 99 . Will continue to work on [employer] to reduce high cholesterol foods .. Bipolar disorder: IS followed by Dr Byers and Dr. Simeon. .? She feels stable on her current mental health medications that are managed by her psychiatrist. Laboratory Tests 05/06/23 11/05/23 10:25 11:32 RBC 5.11 Plt Count 125 L Creatinine 0.96 Cholesterol 190 LDL Cholesterol, C alc 99 TSH 2.17 1.10 [facility] Medical History (Updated 08/31/23 @ 11:27 by Hussein Almeida PA-C) Panic disorder Bipolar 2 disorder Bronchitis COVID-19 virus infection Absolute glaucoma, bilateral Skin lesion of face Hypothyroidism CAD (coronary artery disease) Bipolar 1 disorder Surgical History H/O cardiac catheterization No pertinent past surgical history Family History Father No problems noted. Mother Chronic mental illness Family/Other Chronic mental illness Social History Housing: House Alcohol intake: never Patient Tobacco Use Status: Never used Tobacco e-Cigarette/Vaping Use: Never Used Second Hand Smoke Exposure: No Current occupational status: retired Cognitive needs: No Hearing needs: No Vision needs: Yes (Glasses) Questionnaire PHQ-9 Over the last 2 weeks, how often have you been bothered by any of the following problems? 1. Little interest or pleasure in doing things: not at all 2. Feeling down, depressed, or hopeless: not at all 3. Trouble falling or staying asleep, or sleeping too much: not at all 4. Feeling tired or having little energy: not at all 5. Poor appetite or overeating: not at all 6. Feeling bad about yourself - or that you are a failure or have let yourself or your family down: not at all 7. Trouble concentrating on things, such as reading the newspaper or watching television: not at all 8. Moving or speaking so slowly that other people could have noticed. Or the opposite - being so fidgety or restless that you have been moving around a lot more than usual: not at all 9. Thoughts that you would be better off or of hurting yourself in some way: not at all Total score: 0 Depression Screening Interpretation: Negative Depression Screening Done: Yes 55505 - PHQ-9 Billing: Yes Source: Developed by Drs. Rancho Post, Emelia Echeverria, Ray Jeter and colleagues, with an educational joselyn from [employer]. Thrive Questionnaire Date Thrive assessed: 11/09/23 I am a: Patient What is your living situation today?: I have a steady place to live Within the past 12 months, did the food you bought not last and you didn't have the money to get more?: Never true Within the past 12 months, did you worry whether your food would run out before you got money to buy more?: Never true Do you have trouble paying for medicines?: No Do you have trouble getting transportation to medical appointments?: No Do you have trouble paying your heating and electricity bill?: No Do you have trouble taking care of your child, family member or friend?: No Do you have trouble with day-to-day activities such as bathing, preparing meals, shopping, managing finances, etc.?: No Are you currently unemployed and looking for a job?: No Are you interested in more education?: No Currently or been in a relationship where the following occur: no concerns reported THRIVE Score: 0 AUDIT C Alcohol Use Questionnaire (AUDIT-C) 1. How often do you have a drink containing alcohol?: Never 3. How often do you have six or more drinks on one occasion?: Never Total Score: 0 MACIEL-7 AMB Questionnaire MACIEL-7 Date MACIEL - 7 assessed: 11/09/23 Feeling nervous, anxious, or on edge: 0 = Not at all Not being able to stop or control worryin = Not at all Worrying too much about different things: 0 = Not at all Trouble relaxin = Not at all Being so restless that it is hard to sit still: 0 = Not at all Becoming easily annoyed or irritable: 0 = Not at all Feeling afraid as if something awful might happen: 0 = Not at all Total MACIEL-7 score (0-4 normal; 5-9 mild; 10-14 moderate; 15-21 severe): 0 Source: Developed by Drs. Rancho Post, Emelia Echeverria, Ray Jeter and colleagues, with an educational joselyn from [employer]. MACIEL-7 Assessment Billing MACIEL-7 Assessment Tool: MACIEL-7 Assessment 92098 Review of Systems Const Denies headache(s) Eyes Denies loss of vision ENT Denies vertigo, Denies dizziness, Denies headache(s) and Denies sore throat Card Denies chest pain, Denies leg edema and Denies lightheadedness Resp Denies cough, Denies hemoptysis and Denies wheezing GI Denies abdominal pain, Denies melena, Denies constipation, Denies diarrhea and Denies vomiting Denies urinary frequency, Denies dysuria and Denies urinary urgency Musc Denies arthralgias, Denies joint swelling, Denies numbness and Denies tingling Neuro Denies Abnormal speech present, Denies behavioral changes, Denies vertigo, Denies dizziness, Denies headache(s), Denies loss of vision, Denies memory loss, Denies numbness and Denies tingling Psych Denies anxiety, Denies behavioral changes, Denies depression, Denies memory loss and Denies panic attacks Carlos/Lymph Denies easy bleeding and Denies easy bruising Aller/Immun Denies wheezing Physical exam (Primary Care) Vital Signs: Last Vital Signs Pulse 60 11/09/23 11:22 BP 120/78 11/09/23 11:22 Pulse Ox 93 11/09/23 11:22 Oxygen Delivery Method Room Air 11/09/23 11:22 BMI result Body Mass Index 30.5 Tobacco/Smoking Status: Tobacco use Status Tobacco use date assessed 11/09/23 11/09/23 11:23 Patient Tobacco Use Status Never used Tobacco 11/09/23 11:23 e-Cigarette/Vaping Use Never Used 11/09/23 11:23 PHQ-9: PHQ-9 Score PHQ-9: Total score 0 11/09/23 11:23 Depression Screening Interpretation: Negative Thrive Assessment: Date of Thrive Assessment Date Thrive assessed 11/09/23 11/09/23 11:23 Currently or been in a relationship where the following occur: no concerns reported Const General: healthy appearing, no acute distress, alert and awake Nutritional Appearance: well nourished Orientation/consciousness: oriented to person, oriented to place and oriented to time HENMT Other: DRY DARK BLOOD IN THE RIGHT EXTERNAL CANAL Ears: TM's normal bilaterally General nose exam: Normal nasal mucous membranes and turbinates present Eyes Conjunctivae: conjunctivae normal Sclerae: sclerae normal Pupils: Equal, round and reactive pupils present Neck Neck: Yes no lymphadenopathy and Yes no JVD Thyroid: Thyroid normal Carotids: no bruits Resp Effort & Inspection: normal respiratory effort and not tachypneic Auscultation: no crackles, no rales, no rhonchi and no wheezes Cardio Rate: regular rate Rhythm: regular rhythm Heart sounds: no murmurs and normal S1 and S2 GI Palpation (GI): Soft to palpation, nontender, no hepatomegaly and no splenomegaly Auscultation: normal bowel sounds Skin General skin exam: no rashes or lesions noted and dry skin Neuro General: oriented to person, oriented to place and oriented to time Cranial nerves: Yes Equal, round and reactive pupils present Speech: No Abnormal speech present Gait exam (Neuro): Normal gait present Motor exam (neuro): no tremor noted Extrem Right upper extremity: full ROM Left upper extremity: full ROM Right lower extremity: full ROM; no edema Left lower extremity: full ROM; no edema Psych Mental Status: mental status grossly normal Speech and movement: Normal speech and movement present Affect: normal affect Attitude: cooperative Thought process: Normal thought process present Assessment and Plan Assessment & Plan (1) Hypothyroidism: Code(s): E03.9 - Hypothyroidism, unspecified Qualifiers: Hypothyroidism type: unspecified Qualified Code(s): E03.9 - Hypothyroidism, unspecified Plan: Patient's most recent lipid panel showing appropriate TSH. Will continue her on current dose of levothyroxine 88 mcg. Will continue to follow TSH to assure normal. (2) Thrombocytopenia: Code(s): D69.6 - Thrombocytopenia, unspecified Plan: Has resolved, Patient has stable thrombocytopenia, seems to be idiopathic. No reports of excessive bruising or bleeding. (3) CAD (coronary artery disease): Code(s): I25.10 - Atherosclerotic heart disease of ely sh[place] coronary artery without angina pectoris Qualifiers: Coronary Disease-Associated Artery/Lesion type: [place] artery [place] vs. transplanted heart: [place] heart Associated angina: with stable angina Qualified Code(s): I25.118 - Atherosclerotic heart disease of [place] coronary artery with other forms of angina pectoris Plan: Patient has stable coronary artery disease. Continues on aspirin therapy and statin therapy. Most recent lipid panel showing appropriate total cholesterol and LDL. Goal LDL is to remain below 100 only below 70 (4) Bipolar 1 disorder: Code(s): F31.9 - Bipolar disorder, unspecified Plan: Patient continues to follow psychiatry and a mental health therapist. Feels stable from a mental health point of view and her psychiatrist manages all of her mental health medications. Orders: Orders TSH reflex Free T4 6 Months E03.9 - Hypothyroidism, unspecified Comprehensive [place]. Panel Fast 6 Months I25.118 - Atherosclerotic heart disease of [place] coronary artery with other forms of angina pectoris Complete Blood Count no Diff 6 Months D69.6 - Thrombocytopenia, unspecified Coding Level of Care Code Est Pt Level 4 (96082) Diagnoses Hypothyroidism, unspecified type E03.9 Hypothyroidism type: unspecified Thrombocytopenia D69.6 Coronary artery disease of [place] artery of [place] heart with stable angina pectoris I25.118 Coronary Disease-Associated Artery/Lesion type: [place] artery [place] vs. transplanted heart: [place] heart Associated angina: with stable angina Bipolar 1 disorder F31.9 Additional Codes MACIEL-7 Assessment Billing - MACIEL-7 Assessment Tool: MACIEL-7 Assessment [id number] ([id number])
== END 2023-11-09 11:56 | disposition home or self-care (01) ==
PROVIDERS: PCP Physician Assistant; Visit Provider Physician Assistant
DX: E03.9 Hypothyroidism, unspecified (principal); D69.6 Thrombocytopenia, unspecified; I25.118 Atherosclerotic heart disease of native coronary artery with other forms of angina pectoris; F31.9 Bipolar disorder, unspecified
CPT/HCPCS: 99214

== ENCOUNTER 2024-02-04 11:46 | Outpatient (AMB) | payer OTHER, SELFPAY ==
--- NOTE | 2024-02-04 11:35 | MHC.OFFVISPS ---
Intake Intake Visit Reasons: depression Allergies alendronate sodium Allergy (Unknown, Verified 11/09/23 11:45) stomach upset sulfamethoxazole Allergy (Unknown, Verified 11/09/23 11:45) ITCHING trimethoprim Allergy (Unknown, Verified 11/09/23 11:45) ITCHING clindamycin Adverse Reaction (Intermediate, Verified 11/09/23 11:45) Abdominal Pain HPI- Psychiatric Chief Complaint: depression HPI Narrative: Pt seen in f/u mood has been good stable has been able to walk grandson doing better working mood more stable the patient stable on Topamax Depakote alprazolam t.i.d. does not take all doses. No evidence of over medication no new medical problems Past Psychiatric History: History of bipolar disorder was diagnosed many years ago in [place] has been on alprazolam for many years for anxiety panic generally with good effect rare periods of overuse Mental Status Exam Mental Status Exam Patient Appearance: Well Grooomed Patient Orientation: Person, Place, Time and Situation Level of Consciousness: Awake and Appropriate Patient Behavior: Appropriate Mood Description: Appropriate and Cheerful Affect Description: Calm and Appropriate Ability to Follow Directions: Good Speech Pattern: Clear Memory Description: Intact Hallucinations: None Thought Process: Intact Thought Content: positive for Intact, positive for Goal Oriented, negative for Suicidal Ideation or negative for Homicidal Ideation Judgement: Good Judgement and Insight: Seem to have good judgment and insight no impulsivity no psychosis Assessment and Plan Assessment & Plan (1) Panic disorder: Status: Acute Code(s): F41.0 - Panic disorder [episodic paroxysmal anxiety] (2) Bipolar 2 disorder: Status: Acute Code(s): F31.81 - Bipolar II disorder Plan Continue plan of care no change indicated at this time family doing quite well she and her things seem much more stable no medical concerns patient active continue plan of care Medications: Refilled alprazolam 0.25 mg PO TID 90 tabs 2RF anxiety divalproex ER 250 mg PO DAILY 90 tabs 1RF topiramate 50 mg PO DAILY 90 tabs 1RF Counseling and coordination of Care Medication management counseling: Effectiveness Diagnosis and Prognosis Counseling: Adequacy of current interventions Details: I spent [30] minutes reviewing the record, seeing the patient and documenting in the medical record. Counseling provided to the patient/caregiver as outlined below. Addressed patient/caregiver concerns regarding current medication regime including effective adherence. Addressed patient/caregiver concerns regarding diagnosis and prognosis including accuracy of diagnosis, prognosis over time, impact of diagnosis. Addressed patient/caregiver concerns regarding impact of recent stressors. [facility] Medical History (Updated 08/31/23 @ 11:27 by Hussein Almeida PA-C) Panic disorder Bipolar 2 disorder Bronchitis COVID-19 virus infection Absolute glaucoma, bilateral Skin lesion of face Hypothyroidism CAD (coronary artery disease) Bipolar 1 disorder Surgical History H/O cardiac catheterization No pertinent past surgical history Family History Father No problems noted. Mother Chronic mental illness Family/Other Chronic mental illness Social History Housing: House Alcohol intake: never Patient Tobacco Use Status: Never used Tobacco e-Cigarette/Vaping Use: Never Used Second Hand Smoke Exposure: No Current occupational status: retired Cognitive needs: No Hearing needs: No Vision needs: Yes (Glasses) Social History: pt 3 children was ostracized by family in past recently inherited large sum of money from her uncle Substance History: ? hx of overuse bev denies any current misuse over sedation alcohol or substance abuse Trauma History: none Coding Level of Care Code Est Pt Level 4 (59627) Diagnoses Panic disorder F41.0 Bipolar 2 disorder F31.81
== END 2024-02-04 11:52 | disposition home or self-care (01) ==
LOC: HO.HOP 11:46
PROVIDERS: PCP Physician Assistant; Visit Provider Psychiatry & Neurology Psychiatry
DX: F41.0 Panic disorder [episodic paroxysmal anxiety] (principal); F31.81 Bipolar II disorder
CPT/HCPCS: 99214

== ENCOUNTER → 2024-02-04 11:46 | Outpatient (BNVA) | payer OTHER, SELFPAY | PROVIDERS: PCP Physician Assistant; Visit Provider Psychiatry & Neurology Psychiatry | DX: F41.0 Panic disorder [episodic paroxysmal anxiety] (principal); F31.81 Bipolar II disorder | CPT/HCPCS: 99212 ==

== ENCOUNTER 2024-05-11 10:38 | Outpatient (AMB) | payer OTHER, SELFPAY ==
[2024-05-11 10:57] VITALS: BP 120/82; PULSE 74; O2SAT 95; BMI 29.3
--- NOTE | 2024-05-11 10:57 | A.OFFPC_ITS ---
Vital Signs 05/11/24 10:57 Height 5 ft 7 in Weight 187 lb 4 oz BMI 29.3 BP 120/82 Blood Pressure Location Lt brachial Position Sitting Pulse 74 Pulse Source Pulse Oximeter Pulse Oximetry (%) 95 Oxygen Delivery Method Room Air Intake Visit Reasons: Annual Exam Intake Note: Patient is here today for a physical. Expressive Therapist Required: No Accompanied by: Self / Same As Patient Allergies alendronate sodium Allergy (Unknown, Verified 05/11/24 11:46) stomach upset sulfamethoxazole Allergy (Unknown, Verified 05/11/24 11:46) ITCHING trimethoprim Allergy (Unknown, Verified 05/11/24 11:46) ITCHING clindamycin Adverse Reaction (Intermediate, Verified 05/11/24 11:46) Abdominal Pain Medication List - Last Reconciled 05/11/24 by Hussein Almeida PA-C alprazolam 0.25 mg PO TID aspirin divalproex ER 250 mg PO DAILY lifitegrast 5% (Xiidra) 1 drp ophthalmic (eye) BID loteprednol etabonate 0.5% 1 drp ophthalmic (eye) TID rosuvastatin 40 mg PO DAILY Synthroid (levothyroxine) 88 mcg PO DAILY 90 days NS timolol maleate 0.5% 1 drp ophthalmic (eye) QAM topiramate 50 mg PO DAILY Tobacco use date assessed: 11/09/23 Fall risk assessment: No Falls in past year Last assessed Fall Risk: 05/11/24 Dental Screening Dental Screen Date: 11/09/23 [facility] Annual Exam HPI Details Patient is a 73-year-old female here today for follow-up visit.? Patient has a past medical history significant for bipolar disorder, generalized anxiety disorder, coronary artery disease, glaucoma, hypothyroidism. .. Hypothyroid: Most recent Tsh stable .? She is now taking levothyroxine 88 mcg daily.? Patient has been working in a better eating habits and has been walking daily.? Of note has lost weight since last office visit PLAN: ? Will continue to use? levothyroxine 88mcg on a daily basis. .. CAD: ? Patient continues on statin and anti-platelet therapy.? She did have a small heart attack in 2019 to which she was evaluated by Cardiology and did go to [facility] for cardiac catheterization though no? stent placement. .. Bipolar disorder: IS followed by Dr Byers and Dr. Simeon. .? She feels stable on her current mental health medications that are managed by her psychiatrist. Colonoscopy: Dr Ellison in 2014, polyp found benign, repeat 10 years Mammogram: declines mammo Vaccines: Up-to-date with COVID vaccine and tetanus vaccine, declines PCV , declines shingles. declines flu vaccine Laboratory Tests 05/06/23 11/05/23 10:25 11:32 RBC 5.37 Hgb 16.1 H Creatinine 0.96 Cholesterol 190 167 PFSH Medical History (Updated 05/11/24 @ 13:07 by Hussein Almeida PA-C) Panic disorder Bipolar 2 disorder COVID-19 virus infection Absolute glaucoma, bilateral Skin lesion of face Hypothyroidism CAD (coronary artery disease) Bipolar 1 disorder Surgical History H/O cardiac catheterization No pertinent past surgical history Family History Father No problems noted. Mother Chronic mental illness Family/Other Chronic mental illness Social History Housing: House Alcohol intake: never Patient Tobacco Use Status: Never used Tobacco e-Cigarette/Vaping Use: Never Used Second Hand Smoke Exposure: No Current occupational status: retired Cognitive needs: No Hearing needs: No Vision needs: Yes (Glasses) Questionnaire Thrive Questionnaire Date Thrive assessed: 11/09/23 MACIEL-7 AMB Questionnaire MACIEL-7 Date MACIEL - 7 assessed: 11/09/23 Source: Developed by Drs. Rancho Post, Emelia Echeverria, Ray Jeter and colleagues, with an educational joselyn from [employer]. Review of Systems Const Denies body aches, Denies chills, Denies excessive sweating, Denies fatigue, Denies fever(s) and Denies headache(s) Eyes Denies blurry vision ENT Denies dysphagia, Denies vertigo, Denies dizziness, Denies headache(s), Denies hearing loss and Denies tinnitus Card Denies chest pain, Denies chest pain with activity, Denies syncope, Denies irregular heart rhythm and Denies dyspnea Resp Denies chest congestion, Denies cough, Denies hemoptysis, Denies dyspnea and Denies wheezing GI Denies abdominal pain, Denies melena, Denies hematochezia, Denies coffee ground emesis, Denies dysphagia, Denies diarrhea, Denies nausea and Denies vomiting Denies urinary frequency, Denies dysuria, Denies urinary hesitancy and Denies urinary urgency Musc Denies arthralgias, Denies limited range of motion, Denies muscle cramps and Denies muscle weakness Skin/Breast Denies rash and Denies skin ulcer Neuro Denies Abnormal speech present, Denies confusion, Denies vertigo, Denies dizziness, Denies syncope, Denies headache(s), Denies memory loss and Denies seizure-like activity Psych Denies anxiety, Denies confusion, Denies depression, Denies memory loss, Denies panic attacks and Denies paranoia Endo Denies excessive sweating, Denies fatigue, Denies flushing, Denies polydipsia an d Denies polyuria Aller/Immun Denies wheezing Physical exam (Primary Care) Vital Signs: Last Vital Signs Pulse 74 05/11/24 10:57 BP 120/82 05/11/24 10:57 Pulse Ox 95 05/11/24 10:57 Oxygen Delivery Method Room Air 05/11/24 10:57 BMI result Body Mass Index 29.3 Tobacco/Smoking Status: Tobacco use Status Tobacco use date assessed 11/09/23 05/11/24 10:58 Patient Tobacco Use Status Never used Tobacco 05/11/24 10:58 e-Cigarette/Vaping Use Never Used 05/11/24 10:58 Thrive Assessment: Date of Thrive Assessment Date Thrive assessed 11/09/23 05/11/24 10:58 Const General: cooperative, comfortable, no acute distress, alert and awake; No confusion Orientation/consciousness: oriented to person, oriented to place, patient oriented x3 and No confusion HENMT Head: Yes normocephalic Ears: external ears normal and TM's normal bilaterally Face and sinus: No sinus tenderness Mouth: Normal oral and palatal mucosa present and tongue normal Teeth and gingiva: dentition normal and gingiva normal Throat: Yes posterior oropharynx normal, Yes tonsils normal and Yes uvula midline Eyes Conjunctivae: conjunctivae normal Sclerae: sclerae normal Pupils: Equal, round and reactive pupils present EOM: EOMs intact bilaterally Direct Ophthalmoscopy: No no photophobia Neck Neck: Yes no lymphadenopathy, No tender and Yes no JVD Thyroid: Thyroid normal Carotids: no bruits Chest Chest palpation & inspection: no tenderness Resp Effort & Inspection: normal respiratory effort, no audible wheezes, not labored and no stridor Auscultation: no crackles, no rales, no rhonchi and no wheezes Cardio Jugular venous distension: no JVD Rate: regular rate, not bradycardic and not tachycardic Rhythm: regular rhythm Bruits: no carotid bruits Peripheral pulses: Peripheral pulses 2+ throughout GI Inspection: Yes normal to inspection, No abdominal wall ecchymosis and No visible herniation Palpation (GI): Soft to palpation, nontender, no guarding, not rigid and No hepatosplenomegaly present Auscultation: normoactive bowel sounds General: Yes no CVA tenderness Back/Spine/Pelvis Back: no CVA tenderness and No back tenderness Cervical Spine: cervical ROM normal Thoracic/Lumbar Spine: thoracic and lumbar spine normal to inspection, straight leg raise negative bilaterally, No thoraco-lumbar ROM limited and No lumbar spin al tenderness Skin Lesions: no lesions Rashes: no rashes Wounds: no wounds Neuro General: oriented to person, oriented to place, patient oriented x3, CN's II-XI intact bilaterally and No confusion Cranial nerves: Yes Equal, round and reactive pupils present and Yes Normal accommodation reflex present Cognition (Neuro): normal cognition Speech: No Abnormal speech present Gait exam (Neuro): Normal gait present Motor exam (neuro): 5/5 motor strength present throughout Extrem Right upper extremity: full ROM; no cyanosis Left upper extremity: full ROM; no cyanosis Right lower extremity: no edema Left lower extremity: no edema Psych Appearance: grossly normal Mental Status: mental status grossly normal Affect: normal affect Attitude: cooperative Thought process: Normal thought process present Assessment and Plan Assessment & Plan (1) Annual physical exam: Code(s): Z00.00 - Encounter for general adult medical examination without abnormal findings (2) Hypothyroidism: Code(s): E03.9 - Hypothyroidism, unspecified Qualifiers: Hypothyroidism type: unspecified Qualified Code(s): E03.9 - Hypothyroidism, unspecified Plan: Patient's most recent lipid panel showing appropriate TSH. Will continue her on current dose of levothyroxine 88 mcg. Will continue to follow TSH to assure normal. (3) CAD (coronary artery disease): Code(s): I25.10 - Atherosclerotic heart disease of [place] coronary artery without angina pectoris Qualifiers: Coronary Disease-Associated Artery/Lesion type: [place] artery [place] vs. transplanted heart: [place] heart Associated angina: with stable angina Qualified Code(s): I25.118 - Atherosclerotic heart disease of [place] coronary artery with other forms of angina pectoris Plan: Patient has stable coronary artery disease. Continues on aspirin therapy and statin therapy. Most recent lipid panel showing appropriate total cholesterol and LDL. Goal LDL is to remain below 100 only below 70 (4) Bipolar 1 disorder: Code(s): F31.9 - Bipolar disorder, unspecified Plan: Patient continues to follow psychiatry and a mental health therapist. Feels stable from a mental health point of view and her psychiatrist manages all of her mental health medications. (5) Colon cancer screening: Code(s): Z12.11 - Encounter for screening for malignant neoplasm of colon Plan: Needs repeat screening colonoscopy Orders: Referrals Gastroenterology Referral Z12.11 - Encounter for screening for malignant neoplasm of colon Coding Level of Care Code Est Pt Prev Care >65y(18406) Diagnoses Annual physical exam Z00.00 Hypothyroidism, unspecified type E03.9 Hypothyroidism type: unspecified Coronary artery disease of [place] artery of [place] heart with stable angina pectoris I25.118 Coronary Disease-Associated Artery/Lesion type: [place] artery [place] vs. transplanted heart: [place] heart Associated angina: with stable angina Bipolar 1 disorder F31.9 Colon cancer screening Z12.11
== END 2024-05-11 11:57 | disposition home or self-care (01) ==
PROVIDERS: PCP Physician Assistant; Visit Provider Physician Assistant
DX: Z00.00 Encounter for general adult medical examination without abnormal findings (principal); E03.9 Hypothyroidism, unspecified; I25.118 Atherosclerotic heart disease of native coronary artery with other forms of angina pectoris; F31.9 Bipolar disorder, unspecified; Z12.11 Encounter for screening for malignant neoplasm of colon
CPT/HCPCS: 99397

== ENCOUNTER → 2024-05-18 15:59 | Outpatient (RCR) | payer MEDICARE, SELFPAY ==
[2020-11-26 10:00] VITALS: BP 114/61; PULSE 60; RESP 12; TEMP 36.9; O2SAT 97; BMI 26.5
--- NOTE | 2020-11-26 10:39 | PM.HEMONCPN ---
Medical Summary - Medical Summary Date of Service: 11/26/20 Chief complaint: Follow-up for: Leukopenia, lymphocytosis, thrombocytopenia. Medical Summary: DIAGNOSIS: Lymphocytosis. Leukopenia. Thrombocytopenia. CURRENT THERAPY: Observation. Interval History Interval history: This is a pleasant 70 year-old lady who is doing well. She denies any changes in her medical history nor medications. She feels somewhat tired. Somewhat sleepy at times. She denies easy bruising nor systemic bleeding. No fever nor chills. She denies the chest pain but does get short of breath on exertion. She denies abdominal pain nausea vomiting heartburn indigestion. Her bowels are working without any gross blood in it. She enjoys a good appetite. She is concerned about her weight gain. She has gained about 15 lb since the pandemic. She tries to watch her diet. She eats more salads/vegetables nuts and fruit. She makes her own bread. She is in good spirits. Rest of the review of systems is unremarkable. Previous history: She was recently admitted to the hospital. She was actually admitted earlier in month of March, for sepsis due to UTI. She was treated with ceftriaxone and sepsis resolved. At that time she also had a mildly elevated troponin that was stable. It was felt likely to be secodnary to sepsis. She was evaluated by [facility] and decision was made to admit to for exacerbation of her bipolar disorder. While there, she was noted to have chest pain. Her troponin was lower than before, but her echo showed regional wall motion abnormality, therefore, a stress test was done. This showed reversible ischemia. She was ready for discharge from psychiatric prespective, therefore, decision was made to admit to telemetry for monitoring, plan to transfer to [facility] for catheterization. She tells me she was transferred to [facility] where she had the cardiac catheterization. It had to be done via the wrist approach. She was told it was perfectly fine. Her heart was pumping blood normally. Review of Systems - Constitutional Reports no additional constitutional complaints - Eyes Reports no additional eye complaints - ENT Reports no additional ear, nose, mouth, and throat complaints - Cardiovascular Reports no additional cardiovascular complaints - Respiratory Reports no additional respiratory complaints - Gastrointestinal Reports no additional gastrointestinal complaints - Genitourinary Reports no additional female genitourinary complaints - Musculoskeletal Reports no additional musculoskeletal complaints - Integumentary/Breasts Skin/Breast: Reports no additional skin complaints - Neurologic Reports no additional neurologic complaints - Psychiatric Reports no additional psychiatric complaints - Endocrine Reports no additional endocrine complaints - Hematologic/Lymphatic Reports no additional hematologic/lymphatic complaints - Allergic/Immunologic Reports no additional allergic/immunologic complaints [facility] Family History: Family History (Last Reviewed 09/10/20 @ 17:50 by Hussein Almeida PA-C) Father No problems noted. Mother Chronic mental illness Family/Other Chronic mental illness Surgical History: Surgical History (Last Updated 09/10/20 @ 17:53 by Hussein Almeida PA-C) H/O cardiac catheterization No pertinent past surgical history Social History: Social History (Last Updated 11/26/20 @ 10:09 by Karen Villasenor) Alcohol History: Alcohol intake: never Alcohol History Details: Alcohol intake frequency: does not drink Tobacco History: Smoking Status: Never smoker Second Hand Smoke Exposure: No Substance Use History: Use of substances other than those prescribed or required for medical reasons: No Smoking status: Never smoker Second hand tobacco smoke exposure: No Oncology Screenings - ECOG Performance Status ECOG Performance Status: 0 Home Medications and Allergies Home Medications Medication Instructions Recorded Confirmed Type alprazolam 0.25 mg tablet 0.25 mg PO TID 09/10/20 11/26/20 History bimatoprost 0.01 % eye drops 1 drp OPHTHALMIC (EYE) ml 09/10/20 09/10/20 History cyclosporine 0.05 % eye drops in a 1 drp OPHTHALMIC (EYE) BID 09/10/20 09/10/20 History dropperette divalproex 250 mg tablet,extended 250 mg PO DAILY 09/10/20 09/10/20 History release 24 hr mirtazapine 7.5 mg tablet 7.5 mg PO BEDTIME 09/10/20 11/26/20 History omega-3 fatty acids 1,000 mg 1,000 mg PO DAILY 09/10/20 11/26/20 History capsule topiramate 50 mg tablet 50 mg PO DAILY 09/10/20 11/26/20 History aspirin [Aspir-81] 11/26/20 History levothyroxine [Synthroid] 1 tab PO QAM 11/26/20 11/26/20 History ckjdcrgr-bdn-uuol-FA-lutein 1 tab PO DAILY 11/26/20 11/26/20 History [Centrum Silver Women] Allergies Allergy/AdvReac Type Severity Reaction Status Date / Time alendronate sodium Allergy Unknown stomach Verified 09/10/20 17:48 upset sulfamethoxazole Allergy Unknown ITCHING Verified 09/10/20 17:48 trimethoprim Allergy Unknown ITCHING Verified 09/10/20 17:48 Exam Vital signs: Vital Signs Temp 98.4 F 11/26/20 10:00 Pulse 60 11/26/20 10:00 Resp 12 11/26/20 10:00 BP 114/61 11/26/20 10:00 Pulse Ox 97 11/26/20 10:00 Intake & Output 11/25/20 11/26/20 11/26/20 18:59 06:59 18:59 Other: Weight 79.2 kg Weight in Grams 45439 Weight 79.2 kg Body Mass Index 26.5 - Constitutional Present: no acute distress - Routine HEENT Exam Head: Present: normal inspection Eye: Present: normal appearance ENT: Present: mucous membranes moist - Routine Neck Exam Present: full ROM - Routine Respiratory Exam Present: CTAB - Routine Cardiovascular Exam Cardiovascular: Present: RRR, S1, S2 - Routine Abdominal Exam Present: soft, nontender - Routine Rectal Exam Patient deferred: digital exam - Routine Extremities Exam Present: nontender - Routine Back/Spine/Pelvis Exam Back/Spine: Present: full ROM - Routine Skin Exam Present: intact - Routine Neurological Exam Present: alert, oriented X3 - Routine Psychiatric Exam Present: normal affect Data - Labs CBC & Chem 7: 11/26/20 10:54 11/26/20 10:54 Progress Note: A/P (1) Thrombocytopenia Status: Acute Assessment and plan: This is a 70 year old lady with a history of Chronic Leukopenia, with a relative Lymphocytosis and Thrombocytopenia. DIFFERENTIAL DIAGNOSIS: - This is most likely related to her psychotropic medications including the Topamax and Depakote. - Other possibilities are Collagen Vascular Disorder like Lupus or PMR. However, her sed. rate, RA and and CRP are normal. - underlying infectious disease: Hepatitis versus HIV. Hepatitis-B and C and HIV are negative. - I also checked the MARK and RA; these were normal. - checked B12 and folate levels: These are normal. - Underlying myelo infiltrative disorder: MDS versus multiple myeloma, versus lymphoma. I checked an SIEP, revealed no abnormal bands. LDH: 244. She is clinically doing well. All the above workup is non revealing. This is reassuring. She tells me she has skin cancer on her forehead. Her WBC has normalized however platelets are still mildly diminished. PLAN: - I will refer her for dermatology consultation to Dr. Quinton Alexander. - Now that the above workup is negative, will continue to follow her along and watch her blood count carefully. - I will consider doing a bone marrow exam if her platelet count continues to decline. - She will return in 6 months for a follow up. Thank you, CC: Dr. Billy Bañuelos. Dr. Puente. - Time Spent With Patient Total time spent is greater than 50% in coordination of care (as documented) at patient's floor/unit and/or counseling patient: 25 - 35 minutes
[2020-11-26 11:04] LABS: MANUAL DIFF FLAG NO
[2020-11-26 11:10] LABS: Basophils Absolute Auto 0.1 X10*3/uL (0.0-0.2); Basophils Percent Auto 1.4 % (0-2); Eosinophils Absolute Auto 0.2 X10*3/uL (0.0-0.4); Hematocrit 43.8 % (37-47); Hemoglobin 14.6 g/dl (12.0-16.0); Imm Gran Abs Auto 0.02 X10*3/uL (0.00-0.03); Imm Gran Pct Auto 0.3 % (0.0-0.4); Lymphocytes Absolute Auto 2.2 X10*3/uL (1.2-4.9); Lymphocytes Percent Auto 38.7 % (20-40); Mean Corpuscular HGB Conc 33.3 g/dl (31.0-35.0); Mean Corpuscular Hemoglobin 31.6 pg (27.0-33.0); Mean Corpuscular Volume 94.8 fL (80-98); Mean Platelet Volume 12.1 fL (9.4-12.3); Monocytes Absolute Auto 0.4 X10*3/uL (0.1-1.2); Monocytes Percent Auto 6.6 % (2-11); Neutrophils Absolute Auto 2.8 X10*3/uL (2.0-8.3); Platelet Count 117 X10*3/uL (160-400); Red Blood Count 4.62 X10*6/uL (4.20-5.50); Red Cell Distribution Width 15.2 % (11.0-16.0); White Blood Count 5.8 X10*3/uL (4.8-10.8)
--- NOTE | 2020-11-26 11:18 | MHC.HEMONCMA ---
Patient present to f/u on lymphocytosis. History reviewed, labs drawn and pt to return in 6 months.
[2020-11-26 11:40] LABS: Alanine Aminotransferase 24 U/L (0-31); Albumin Level 4.2 g/dL (3.5-5.0); Alkaline Phosphatase 101 U/L (39-117); Anion Gap 14 (12-20); Aspartate Amino Transferase 26 U/L (5-31); Bilirubin Total 0.5 mg/dL (0.0-1.0); Blood Urea Nitrogen 17 mg/dL (9-16); Calcium 9.2 mg/dL (8.4-10.2); Carbon Dioxide 23 mmol/L (22-29); Chloride 109 mmol/L (96-108); Creatinine Clr Calc Pharmacy 54.6; Estimated Glomerular Filt Rate 50; Glucose Random 84 mg/dL (60-115); Lactate Dehydrogenase 228 U/L (122-220); Potassium 4.3 mmol/L (3.3-5.1); Sodium 142 mmol/L (135-145); Total Protein 6.4 g/dL (6.5-8.0)
== END | disposition home or self-care (01) ==
LOC: HO.ONC 11-26 09:53
PROVIDERS: PCP Physician Assistant; Visit Provider Internal Medicine Medical Oncology
DX: D72.819 Decreased white blood cell count, unspecified (principal); D72.820 Lymphocytosis (symptomatic); D69.6 Thrombocytopenia, unspecified
CPT/HCPCS: 36415; 80053; 83615; 85025; 99214

== ENCOUNTER 2024-06-09 10:30 | Outpatient (REF) | payer OTHER, SELFPAY ==
[2024-06-09 11:49] LABS: Hematocrit 48.4 % (37.0-47.0); Hemoglobin 16.4 g/dl (12.0-16.0); Mean Corpuscular HGB Conc 33.9 g/dl (31.0-35.0); Mean Corpuscular Hemoglobin 30.1 pg (27.0-33.0); Platelet Count 143 X10*3/uL (160-400); Red Blood Count 5.44 X10*6/uL (4.20-5.50); Red Cell Distribution Width 14.3 % (11.0-16.0); White Blood Count 6.5 X10*3/uL (4.8-10.8)
[2024-06-09 12:20] LABS: Alanine Aminotransferase 18 U/L (0-31); Albumin Level 4.1 g/dL (3.5-5.0); Alkaline Phosphatase 99 U/L (39-117); Anion Gap 11 (12-20); Aspartate Amino Transferase 15 U/L (5-31); Bilirubin Total 0.7 mg/dL (0.0-1.0); Blood Urea Nitrogen 17 mg/dL (9-16); Calcium 9.8 mg/dL (8.4-10.2); Carbon Dioxide 22 mmol/L (22-29); Chloride 113 mmol/L (96-108); Estimated Glomerular Filt Rate > 60; Glucose Fasting 99 mg/dL (60-99); Potassium 4.3 mmol/L (3.3-5.1); Sodium 142 mmol/L (135-145); Total Protein 7.2 g/dL (6.5-8.0)
[2024-06-09 12:40] LABS: TSH reflex Free T4 1.95 uIU/mL (0.32-4.0)
== END 2024-06-09 10:31 | disposition home or self-care (01) ==
LOC: HO.LAB 10:30
PROVIDERS: PCP Physician Assistant; Visit Provider Physician Assistant
DX: F41.0 Panic disorder [episodic paroxysmal anxiety] (principal); F31.81 Bipolar II disorder; Z79.899 Other long term (current) drug therapy; D69.6 Thrombocytopenia, unspecified; I25.118 Atherosclerotic heart disease of native coronary artery with other forms of angina pectoris; E03.9 Hypothyroidism, unspecified
CPT/HCPCS: 36415; 80053; 84443; 85027; 99212

== ENCOUNTER 2024-06-09 11:03 | Outpatient (AMB) | payer OTHER, SELFPAY ==
--- NOTE | 2024-06-09 11:59 | MHC.OFFVISPS ---
Intake Intake Visit Reasons: depression Allergies alendronate sodium Allergy (Unknown, Verified 05/11/24 11:46) stomach upset sulfamethoxazole Allergy (Unknown, Verified 05/11/24 11:46) ITCHING trimethoprim Allergy (Unknown, Verified 05/11/24 11:46) ITCHING clindamycin Adverse Reaction (Intermediate, Verified 05/11/24 11:46) Abdominal Pain HPI- Psychiatric Chief Complaint: depression HPI Narrative: Patient seen in psychiatric follow-up. Patient needs to do quite well no significant manic or mixed states. Anxiety seems control has been on low-dose Depakote alprazolam 0.25 b.i.d. to t.i.d. and low-dose Topamax for an extended period of time with generally good effect. Patient tolerating this no description overly sedated diversion or misuse. Past Psychiatric History: History of bipolar disorder was diagnosed many years ago in [place] has been on alprazolam for many years for anxiety panic generally with good effect rare periods of overuse Mental Status Exam Mental Status Exam Patient Appearance: Well Grooomed Patient Orientation: Person, Place, Time and Situation Level of Consciousness: Awake and Appropriate Patient Behavior: Appropriate Mood Description: Appropriate and Cheerful Affect Description: Calm and Appropriate Ability to Follow Directions: Good Speech Pattern: Clear Memory Description: Intact Hallucinations: None Thought Process: Intact Thought Content: positive for Intact, positive for Goal Oriented, negative for Suicidal Ideation or negative for Homicidal Ideation Judgement: Good Judgement and Insight: Seem to have good judgment and insight no impulsivity no psychosis Assessment and Plan Assessment & Plan (1) Panic disorder: Status: Acute Code(s): F41.0 - Panic disorder [episodic paroxysmal anxiety] (2) Bipolar II disorder in full remission: Status: Acute Code(s): F31.81 - Bipolar II disorder Plan Patient seems to generally be balanced in mood history of significant anxiety and rumination in the past but seems quite stable for an extended period of time continue see Dr. Benítez continue plan of care have discuss with patient longer-term risks benzodiazepine use including potential increase in memory disorder Medications: Refilled divalproex ER 250 mg PO DAILY 90 tabs 1RF topiramate 50 mg PO DAILY 90 tabs 1RF alprazolam 0.25 mg PO TID 90 tabs 2RF anxiety Counseling and coordination of Care Details: I spent [] minutes reviewing the record, seeing the patient and documenting in the medical record. Counseling provided to the patient/caregiver as outlined below. Addressed patient/caregiver concerns regarding current medication regime including effective adherence. Addressed patient/caregiver concerns regarding diagnosis and prognosis including accuracy of diagnosis, prognosis over time, impact of diagnosis. Addressed patient/caregiver concerns regarding impact of recent stressors. [facility] Medical History (Updated 07/15/24 @ 11:15 by Justin Bañuelos MD) Panic disorder Bipolar 2 disorder COVID-19 virus infection Absolute glaucoma, bilateral Skin lesion of face Hypothyroidism CAD (coronary artery disease) Bipolar 1 disorder Surgical History H/O cardiac catheterization No pertinent past surgical history Family History Father No problems noted. Mother Chronic mental illness Family/Other Chronic mental illness Social History Housing: House Alcohol intake: never Patient Tobacco Use Status: Never used Tobacco e-Cigarette/Vaping Use: Never Used Second Hand Smoke Exposure: No Current occupational status: retired Cognitive needs: No Hearing needs: No Vision needs: Yes (Glasses) Social History: pt 3 children was ostracized by family in past recently inherited large sum of money from her uncle Substance History: ? hx of overuse bev denies any current misuse over sedation alcohol or substance abuse Trauma History: none Coding Level of Care Code Est Pt Level 4 (81292) Diagnoses Panic disorder F41.0 Bipolar II disorder in full remission F31.81
== END 2024-06-09 12:06 | disposition home or self-care (01) ==
LOC: HO.HOP 11:03
PROVIDERS: PCP Physician Assistant; Visit Provider Psychiatry & Neurology Psychiatry
DX: F41.0 Panic disorder [episodic paroxysmal anxiety] (principal); F31.81 Bipolar II disorder
CPT/HCPCS: 99214

== ENCOUNTER 2024-08-25 13:15 | Outpatient (AMB) | payer OTHER, SELFPAY ==
--- NOTE | 2024-08-25 13:07 | MHC.OFFVISPS ---
Intake Intake Visit Reasons: depression Allergies alendronate sodium Allergy (Unknown, Verified 05/11/24 11:46) stomach upset sulfamethoxazole Allergy (Unknown, Verified 05/11/24 11:46) ITCHING trimethoprim Allergy (Unknown, Verified 05/11/24 11:46) ITCHING clindamycin Adverse Reaction (Intermediate, Verified 05/11/24 11:46) Abdominal Pain HPI- Psychiatric Chief Complaint: depression HPI Narrative: Pt is a 74 yo female hx bipolar 2 has been stable on low dose depakote topamax alprazolam. No evidence of abuse or tolerance. Pt denies panic any sig manic or dep episodes Past Psychiatric History: History of bipolar disorder was diagnosed many years ago in [place] has been on alprazolam for many years for anxiety panic generally with good effect rare periods of overuse Mental Status Exam Mental Status Exam Patient Appearance: Well Grooomed Patient Orientation: Person, Place, Time and Situation Level of Consciousness: Awake and Appropriate Patient Behavior: Appropriate Mood Description: Appropriate and Cheerful Affect Description: Calm and Appropriate Ability to Follow Directions: Good Speech Pattern: Clear Memory Description: Intact Hallucinations: None Thought Process: Intact Thought Content: positive for Intact, positive for Goal Oriented, negative for Suicidal Ideation or negative for Homicidal Ideation Judgement: Good Judgement and Insight: Seem to have good judgment and insight no impulsivity no psychosis Assessment and Plan Assessment & Plan (1) Bipolar II disorder in full remission: Status: Acute Code(s): F31.81 - Bipolar II disorder (2) Panic disorder: Status: Acute Code(s): F41.0 - Panic disorder [episodic paroxysmal anxiety] Plan pt stable doing well no change indicated at this time Medications: Refilled topiramate 50 mg PO DAILY 90 tabs 1RF divalproex ER 250 mg PO DAILY 90 tabs 1RF alprazolam 0.25 mg PO TID 90 tabs 2RF anxiety Counseling and coordination of Care Medication management counseling: Effectiveness and Dosing range Diagnosis and Prognosis Counseling: Adequacy of current interventions Details: I spent [30] minutes reviewing the record, seeing the patient and documenting in the medical record. Counseling provided to the patient/caregiver as outlined below. Addressed patient/caregiver concerns regarding current medication regime including effective adherence. Addressed patient/caregiver concerns regarding diagnosis and prognosis including accuracy of diagnosis, prognosis over time, impact of diagnosis. Addressed patient/caregiver concerns regarding impact of recent stressors. [facility] Medical History (Updated 10/25/24 @ 11:15 by Justin Bañuelos MD) Panic disorder Bipolar 2 disorder COVID-19 virus infection Absolute glaucoma, bilateral Skin lesion of face Hypothyroidism CAD (coronary artery disease) Bipolar 1 disorder Surgical History H/O cardiac catheterization No pertinent past surgical history Family History Father No problems noted. Mother Chronic mental illness Family/Other Chronic mental illness Social History Housing: House Alcohol intake: never Patient Tobacco Use Status: Never used Tobacco e-Cigarette/Vaping Use: Never Used Second Hand Smoke Exposure: No Current occupational status: retired Cognitive needs: No Hearing needs: No Vision needs: Yes (Glasses) Social History: pt 3 children was ostracized by family in past recently inherited large sum of money from her uncle Substance History: ? hx of overuse bev denies any current misuse over sedation alcohol or substance abuse Trauma History: none Coding Level of Care Code Est Pt Level 4 (02425) Diagnoses Bipolar II disorder in full remission F31.81 Panic disorder F41.0
== END 2024-08-25 13:20 | disposition home or self-care (01) ==
LOC: HO.HOP 13:15
PROVIDERS: PCP Physician Assistant; Visit Provider Psychiatry & Neurology Psychiatry
DX: F31.81 Bipolar II disorder (principal); F41.0 Panic disorder [episodic paroxysmal anxiety]
CPT/HCPCS: 99214

== ENCOUNTER → 2024-08-25 13:15 | Outpatient (BNVA) | payer OTHER, SELFPAY | PROVIDERS: PCP Physician Assistant; Visit Provider Psychiatry & Neurology Psychiatry | DX: F31.81 Bipolar II disorder (principal); F41.0 Panic disorder [episodic paroxysmal anxiety]; Z71.89 Other specified counseling | CPT/HCPCS: 99212 ==

== ENCOUNTER 2024-11-14 11:19 | Outpatient (AMB) | payer OTHER, SELFPAY ==
--- NOTE | 2024-11-14 11:34 | MHC.PC.OV ---
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: No Middle School Pe Teacher: Not Required per policy Accompanied by: Self / Same As Patient Allergies alendronate sodium Allergy (Unknown, Verified 11/14/24 11:50) stomach upset sulfamethoxazole Allergy (Unknown, Verified 11/14/24 11:50) ITCHING trimethoprim Allergy (Unknown, Verified 11/14/24 11:50) ITCHING clindamycin Adverse Reaction (Intermediate, Verified 11/14/24 11:50) Abdominal Pain Medication List - Last Reconciled 11/14/24 by Hussein Almeiad PA-C alprazolam 0.25 mg PO TID aspirin divalproex ER 250 mg PO DAILY lifitegrast 5% (Xiidra) 1 drp ophthalmic (eye) BID loteprednol etabonate 0.5% 1 drp ophthalmic (eye) TID rosuvastatin 40 mg PO DAILY Synthroid (levothyroxine) 88 mcg PO DAILY 90 days NS timolol maleate 0.5% 1 drp ophthalmic (eye) QAM topiramate 50 mg PO DAILY Tobacco use date assessed: 11/14/24 Fall risk assessment: No Falls in past year Last assessed Fall Risk: 11/14/24 Dental Screening Dental Screen Date: 11/14/24 Did you have a dental visit in the last 12 months?: No Did you have a dental problem in the last 6 months where you did not have access to dental care?: No Was dental information given to patient?: No HPI f/u hypothyroid HPI Details Patient is a 74-year-old female here today for follow-up visit.? Patient has a past medical history significant for bipolar disorder, generalized anxiety disorder, coronary artery disease, glaucoma, hypothyroidism. .. Hypothyroid: Most recent Tsh stable .? She is now taking levothyroxine 88 mcg daily.? Patient has been working in a better eating habits and has been walking daily.? Of note has lost weight since last office visit PLAN: ? Will continue to use? levothyroxine 88mcg on a daily basis. .. CAD: ? Patient continues on statin and anti-platelet therapy.? She did have a small heart attack in 2019 to which she was evaluated by Cardiology and did go to [facility] for cardiac catheterization though no? stent placement. .. Bipolar disorder: IS followed by Dr Byers and Dr. Simeon. .? She feels stable on her current mental health medications that are managed by her psychiatrist. [facility] Medical History (Updated 11/14/24 @ 11:57 by Hussein Almeida PA-C) Panic disorder COVID-19 virus infection Absolute glaucoma, bilateral Skin lesion of face Hypothyroidism CAD (coronary artery disease) Bipolar 1 disorder Surgical History H/O cardiac catheterization No pertinent past surgical history Family History Father No problems noted. Mother Chronic mental illness Family/Other Chronic mental illness Social History Housing: House Alcohol intake: never Patient Tobacco Use Status: Never used Tobacco e-Cigarette/Vaping Use: Never Used Second Hand Smoke Exposure: No service: No Current occupational status: retired Cognitive needs: No Hearing needs: No Vision needs: Yes (Glasses) Questionnaire PHQ-9 Over the last 2 weeks, how often have you been bothered by any of the following problems? 1. Little interest or pleasure in doing things: not at all 2. Feeling down, depressed, or hopeless: not at all 3. Trouble falling or staying asleep, or sleeping too much: not at all 4. Feeling tired or having little energy: not at all 5. Poor appetite or overeating: not at all 6. Feeling bad about yourself - or that you are a failure or have let yourself or your family down: not at all 7. Trouble concentrating on things, such as reading the newspaper or watching television: not at all 8. Moving or speaking so slowly that other people could have noticed. Or the opposite - being so fidgety or restless that you have been moving around a lot more than usual: not at all 9. Thoughts that you would be better off or of hurting yourself in some way: not at all Total score: 0 Depression Screening Interpretation: Negative Depression Screening Done: Yes 80990 - PHQ-9 Billing: Yes Source: Developed by Emelia Addison Kurt Kroenke and colleagues, with an educational joselyn from [employer] Thrive Questionnaire Date Thrive assessed: 11/14/24 I am a: Patient What is your living situation today?: I have a steady place to live Within the past 12 months, did the food you bought not last and you didn't have the money to get more?: Never true Within the past 12 months, did you worry whether your food would run out before you got money to buy more?: Never true Do you have trouble paying for medicines?: No Do you have trouble getting transportation to medical appointments?: No Do you have trouble paying your heating and electricity bill?: No Do you have trouble taking care of your child, family member or friend?: No Do you have trouble with day-to-day activities such as bathing, preparing meals, shopping, managing finances, etc.?: No Are you currently unemployed and looking for a job?: No Are you interested in more education?: No Please select the resources that you would like help with: None Currently or been in a relationship where the following occur: No concerns reported THRIVE Score: 0 AUDIT C Alcohol Use Questionnaire (AUDIT-C) 1. How often do you have a drink containing alcohol?: Never Total Score: 0 MACIEL-7 AMB Questionnaire MACIEL-7 Date MACIEL - 7 assessed: 11/14/24 Feeling nervous, anxious, or on edge: 0 = Not at all Not being able to stop or control worryin = Not at all Worrying too much about different things: 0 = Not at all Trouble relaxin = Not at all Being so restless that it is hard to sit still: 0 = Not at all Becoming easily annoyed or irritable: 0 = Not at all Feeling afraid as if something awful might happen: 0 = Not at all Total MACIEL-7 score (0-4 normal; 5-9 mild; 10-14 moderate; 15-21 severe): 0 Source: Developed by Emelia Addison Kurt Kroenke and colleagues, with an educational joselyn from [employer] MACIEL-7 Assessment Billing MACIEL-7 Assessment Tool: MACIEL-7 Assessment 64992 Review of Systems Const Denies headache(s) Eyes Denies loss of vision ENT Denies vertigo, Denies dizziness, Denies headache(s) and Denies sore throat Card Denies chest pain, Denies leg edema and Denies lightheadedness Resp Denies cough, Denies hemoptysis and Denies wheezing GI Denies abdominal pain, Denies melena, Denies constipation, Denies diarrhea and Denies vomiting Denies urinary frequency, Denies dysuria and Denies urinary urgency Musc Denies arthralgias, Denies joint swelling, Denies numbness and Denies tingling Neuro Denies Abnormal speech present, Denies behavioral changes, Denies vertigo, Denies dizziness, Denies headache(s), Denies loss of vision, Denies memory loss, Denies numbness and Denies tingling Psych Denies anxiety, Denies behavioral changes, Denies depression, Denies memory loss and Denies panic attacks Carlos/Lymph Denies easy bleeding and Denies easy bruising Aller/Immun Denies wheezing Physical exam (Primary Care) Vital Signs: Last Vital Signs Temp 96.8 F 11/14/24 11:36 Pulse 68 11/14/24 11:36 BP 122/64 11/14/24 11:36 Pulse Ox 97 11/14/24 11:36 Oxygen Delivery Method Room Air 11/14/24 11:36 BMI result Body Mass Index 28.7 Tobacco/Smoking Status: Tobacco use Status Tobacco use date assessed 11/14/24 11/14/24 11:41 Patient Tobacco Use Status Never used Tobacco 11/14/24 11:34 e-Cigarette/Vaping Use Never Used 11/14/24 11:34 PHQ-9: PHQ-9 Score PHQ-9: Total score 0 11/14/24 11:41 Depression Screening Interpretation: Negative Thrive Assessment: Date of Thrive Assessment Date Thrive assessed 11/14/24 11/14/24 11:41 Currently or been in a relationship where the following occur: No concerns reported Const General: healthy appearing, no acute distress, alert and awake Nutritional Appearance: well nourished Orientation/consciousness: oriented to person, oriented to place and oriented to time HENMT Ears: TM's normal bilaterally General nose exam: Normal nasal mucous membranes and turbinates present Eyes Conjunctivae: conjunctivae normal Sclerae: sclerae normal Pupils: Equal, round and reactive pupils present Neck Neck: Yes no lymphadenopathy and Yes no JVD Thyroid: Thyroid normal Carotids: no bruits Resp Effort & Inspection: normal respiratory effort and not tachypneic Auscultation: no crackles, no rales, no rhonchi and no wheezes Cardio Rate: regular rate Rhythm: regular rhythm Heart sounds: no murmurs and normal S1 and S2 GI Palpation (GI): Soft to palpation, nontender, no hepatomegaly and no splenomegaly Auscultation: normal bowel sounds Skin General skin exam: no rashes or lesions noted and dry skin Neuro General: oriented to person, oriented to place and oriented to time Cranial nerves: Yes Equal, round and reactive pupils present Speech: No Abnormal speech present Gait exam (Neuro): Normal gait present Motor exam (neuro): no tremor noted Extrem Right upper extremity: full ROM Left upper extremity: full ROM Right lower extremity: full ROM; no edema Left lower extremity: full ROM; no edema Psych Mental Status: mental status grossly normal Speech and movement: Normal speech and movement present Affect: normal affect Attitude: cooperative Thought process: Normal thought process present Coding Level of Care Code Est Pt Level 4 (47111) Diagnoses Bipolar 1 disorder F31.9 Thrombocytopenia D69.6 Coronary artery disease of seminole artery of seminole heart with stable angina pectoris I25.118 Coronary Disease-Associated Artery/Lesion type: seminole artery [place] vs. transplanted heart: seminole heart Associated angina: with stable angina Hypothyroidism, unspecified type E03.9 Hypothyroidism type: unspecified Additional Codes PHQ-9 - 94714 - PHQ-9 Billing: Yes ([id number]) MACIEL-7 Assessment Billing - MACIEL-7 Assessment Tool: MACIEL-7 Assessment 15589 ([id number]) Assessment & Plan Assessment & Plan (1) Bipolar 1 disorder: Code(s): F31.9 - Bipolar disorder, unspecified Category: Medical Plan: Patient continues to follow psychiatrist and a psychologist who manage her mental health medications. She feels stable from a mental health point of view. (2) Thrombocytopenia: Code(s): D69.6 - Thrombocytopenia, unspecified Category: Medical Plan: Most recent CBC showing stable platelet counts. No reports of bleeding or bruising. (3) CAD (coronary artery disease): Code(s): I25.10 - Atherosclerotic heart disease of seminole coronary artery without angina pectoris Category: Medical Qualifiers: Coronary Disease-Associated Artery/Lesion type: seminole artery [place] vs. transplanted heart: seminole heart Associated angina: with stable angina Qualified Code(s): I25.118 - Atherosclerotic heart disease of seminole coronary artery with other forms of angina pectoris Plan: Patient has a history of coronary artery disease. She otherwise denies any chest discomforts, dizziness or shortness of breath. She continues on statin therapy. LDL to be optimally below 70 (4) Hypothyroidism: Code(s): E03.9 - Hypothyroidism, unspecified Category: Medical Qualifiers: Hypothyroidism type: unspecified Qualified Code(s): E03.9 - Hypothyroidism, unspecified Plan: Continues with levothyroxine 88 mcg daily. Most recent TSH has been stable. Orders: Orders TSH reflex Free T4 Today E03.9 - Hypothyroidism, unspecified Lipid Panel Today I25.118 - Atherosclerotic heart disease of seminole coronary artery with other forms of angina pectoris Comprehensive [place]. Panel Fast Today I25.118 - Atherosclerotic heart disease of seminole coronary artery with other forms of angina pectoris Complete Blood Count no Diff Today I25.118 - Atherosclerotic heart disease of seminole coronary artery with other forms of angina pectoris Medications: Refilled Synthroid (levothyroxine) 88 mcg PO DAILY 90 days 90 tabs 2RF NS E03.9 - Hypothyroidism, unspecified Patient Instructions: Goal: LDL to be optimally below 70 Barriers: Adherence to physical activity and healthy eating habits
[2024-11-14 11:36] VITALS: BP 122/64; PULSE 68; TEMP 36; O2SAT 97; BMI 28.7
== END 2024-11-14 11:58 | disposition home or self-care (01) ==
PROVIDERS: PCP Physician Assistant; Visit Provider Physician Assistant
DX: F31.9 Bipolar disorder, unspecified (principal); D69.6 Thrombocytopenia, unspecified; I25.118 Atherosclerotic heart disease of native coronary artery with other forms of angina pectoris; E03.9 Hypothyroidism, unspecified

== ENCOUNTER → 2024-11-14 11:19 | Outpatient (BNVA) | payer OTHER, SELFPAY | PROVIDERS: PCP Physician Assistant; Visit Provider Physician Assistant | DX: F31.9 Bipolar disorder, unspecified (principal); D69.6 Thrombocytopenia, unspecified; I25.118 Atherosclerotic heart disease of native coronary artery with other forms of angina pectoris; E03.9 Hypothyroidism, unspecified | CPT/HCPCS: 96127; 99212 ==

== ENCOUNTER 2024-12-29 11:20 | Outpatient (AMB) | payer OTHER, SELFPAY ==
--- NOTE | 2024-12-29 11:58 | A.OFFPSYCH_ITS ---
Intake Intake Visit Reasons: depression Allergies alendronate sodium Allergy (Unknown, Verified 11/14/24 11:50) stomach upset sulfamethoxazole Allergy (Unknown, Verified 11/14/24 11:50) ITCHING trimethoprim Allergy (Unknown, Verified 11/14/24 11:50) ITCHING clindamycin Adverse Reaction (Intermediate, Verified 11/14/24 11:50) Abdominal Pain HPI- Psychiatric Chief Complaint: depression HPI Narrative: No new medical concerns. Pt seen in f/u mood stable no medical changes sees dr an weekly patient continues on low-dose Depakote Topamax alprazolam 0.25 t.i.d. patient has been significantly stable for an extended period of time. No panic attacks mood generally stable no significant mood lability or agitation Past Psychiatric History: History of bipolar disorder was diagnosed many years ago in [place] has been on alprazolam for many years for anxiety panic generally with good effect rare periods of overuse Mental Status Exam Mental Status Exam Patient Appearance: Well Grooomed Patient Orientation: Person, Place, Time and Situation Level of Consciousness: Awake and Appropriate Patient Behavior: Appropriate Mood Description: Appropriate and Cheerful Affect Description: Calm and Appropriate Ability to Follow Directions: Good Speech Pattern: Clear Memory Description: Intact Hallucinations: None Thought Process: Intact Thought Content: positive for Intact, positive for Goal Oriented, negative for Suicidal Ideation or negative for Homicidal Ideation Judgement: Good Judgement and Insight: Seem to have good judgment and insight no impulsivity no psychosis Assessment and Plan Assessment & Plan (1) Panic disorder: Status: Acute Code(s): F41.0 - Panic disorder [episodic paroxysmal anxiety] (2) Bipolar II disorder in full remission: Status: Acute Code(s): F31.81 - Bipolar II disorder Plan Patient remains quite stable on low-dose Depakote Topamax and alprazolam. Unclear if patient needs this combination but has been stable on this for an extended period of time doing well not overly anxious dysphoric things going well at home Medications: Refilled alprazolam 0.25 mg PO TID 90 tabs 2RF anxiety divalproex ER 250 mg PO DAILY 90 tabs 1RF topiramate 50 mg PO DAILY 90 tabs 1RF Counseling and coordination of Care Medication management counseling: Effectiveness and Side effects Diagnosis and Prognosis Counseling: Adequacy of current interventions Details: I spent [] minutes reviewing the record, seeing the patient and documenting in the medical record. Counseling provided to the patient/caregiver as outlined below. Addressed patient/caregiver concerns regarding current medication regime including effective adherence. Addressed patient/caregiver concerns regarding diagnosis and prognosis including accuracy of diagnosis, prognosis over time, impact of diagnosis. Addressed patient/caregiver concerns regarding impact of recent stressors. [facility] Medical History (Updated 11/14/24 @ 11:57 by Hussein Almeida PA-C) Panic disorder COVID-19 virus infection Absolute glaucoma, bilateral Skin lesion of face Hypothyroidism CAD (coronary artery disease) Bipolar 1 disorder Surgical History H/O cardiac catheterization No pertinent past surgical history Family History Father No problems noted. Mother Chronic mental illness Family/Other Chronic mental illness Social History Housing: House Alcohol intake: never Patient Tobacco Use Status: Never used Tobacco e-Cigarette/Vaping Use: Never Used Second Hand Smoke Exposure: No service: No Current occupational status: retired Cognitive needs: No Hearing needs: No Vision needs: Yes (Glasses) Social History: pt 3 children was ostracized by family in past recently inherited large sum of money from her uncle Substance History: ? hx of overuse bev denies any current misuse over sedation alcohol or substance abuse Trauma History: none Coding Level of Care Code Est Pt Level 4 (88571) Diagnoses Panic disorder F41.0 Bipolar II disorder in full remission F31.81
--- OUTSIDE RECORDS SUMMARY | 2024-12-29 13:45 | XMS_ITS ---
Author Organization [facility] Address [address] [place] [id number] Care Team Providers Care Satellite Dish Repairer Name Role Phone Hussein Almeida Primary Care Provider UnavailRancho Holder [phone] REASON FOR VISIT Patient presents today for a recall colonoscopy Encounters Encounter Location Date Provider Diagnosis [facility] [address] [facility] [place] [address] [place] [phone] 09/07/2024 [facility] Ellison Plan Of Treatment No Information Progress Notes * SHARAN JACK PDO B:1950 (74 yo F)Acc No.[id number]:09/07/2024 Progress Notes Patient:?RIDDLE SHARAN STOLL Provider:?Rancho Ellison MD :1950???Age:74 Y???Sex:Female D ate:09/07/2024 Address:[address] [place] [address] [facility] Pcp:Hussein Almeida Subjective: * Chief Complaints: * ???1. Patient presents today for a recall colonoscopy. * Medical History:? Objective: * Vitals:? Assessment: Plan: * Treatment: * * The named appointment provid er may or may not be the originator of this progress note, and it is not deemed complete until electronically signed by the appointment provider. Sign off status: Pending * Provider:?Rancho Ellison MD Date:? 024 Generated for Suni archibald/James/eTmanuelsmitting on:?12/29/2024 01:45 PM EDT
--- OUTSIDE RECORDS SUMMARY | 2024-12-29 13:45 | XMS_ITS | Patient Health Record ---
Author Organization [facility] Address [address] [place] [phone] Care Team Providers Care Electrophysiology Tech Name Role Phone Hussein Almeida Primary Care Provider UnavailRancho Holder [phone] Reason For Referral No Information Medications Medication SIG (Take, Route, Frequency, Duration) Notes Start Date End Date Status Colyte w Flavor Packs 240 GM as directed Orally as directed for 1 day(s) 07/05/2014 Active Simvastatin 80 MG 1 tablet in the even ing Orally Once a day Active Topamax 50 MG 1 tablet at bedtime Orally Once a day Active Depakote Active Synthroid 100 MCG 1 tablet on an empty stomach in the morning Orally Once a day Active Metoprolol Succinate ER 25 MG 1 tablet Orally Once a day Active ALPRAZolam Active Aspir-81 81 MG 1 tablet Orally Once a day Active Fish Oil 1000 MG 1 capsule Orally Onc e a day Active Problems Problem Type SNOMED Code ICD Code Onset Dates Problem Status W/U Status Risk Notes Problem Pre-surgery evaluation (958227470) Other specified pre-operative examination (V72.83) Active confirmed Problem Colon cancer screening (361975538) Colon cancer screening (V76.51) Active confirmed Encounters Encounter Location Date Provider Diagnosis [facility] [address] [place] [phone] 08/26/2024 [facility] Ellison Plan Of Treatment Future Test Test Name Order Date COLONOSCOPY 07/05/2014 Insurance Providers Payer Name Payer Address Payer Phone Subscriber Number Group Number Insured Name Patient Relationship to Insured Coverage Start Date Coverage End Date [facility] [address] [place] [address] [id number] JANESSA Wharton, SHARAN Self - patient is the insured Medical (General) History Medical History History ICD Code [place] 2006- has 1 stent in-- bl ood transfusion after heart attack in relation to bleeding in the groin from the cardiac cath---no problems since then--had a neg ETT [place]ier [place] [address] Leon Denmary DM,CVA,Lung disease,renal disease Hypothyroidism Depression/Bipolar Hyperlipidemia Reports a negative colonoscopy > 10 yrs ago
--- OUTSIDE RECORDS SUMMARY | 2024-12-29 13:46 | XMS_ITS ---
Author Organization [facility] Address [address] [place] [phone] Care Team Providers Care Ict Support Technicians Name Role Phone Hussein Almeida Primary Care Provider Unavailab Rancho Mtz [phone] REASON FOR VISIT ov appt Encounters Encounter Location Date Provider Diagnosis [facility] [address] [place] [phone] 08/26/2024 [facility] Ellison Plan Of Treatment No Information Progress Notes * SHARAN JACK PDO B:1950 (74 yo F)Acc No.[id number]:08/26/2024 Patient:?SHARAN JACK :1950???Age:74 Y???Sex:Female Address:[address] [place] [address], [address] * true * Date:? Generated for Kauri cristela/James/eTransmitting on:?12/29/2024 01:45 PM EDT
== END 2024-12-29 12:09 | disposition home or self-care (01) ==
LOC: HO.HOP 11:20
PROVIDERS: PCP Physician Assistant; Visit Provider Psychiatry & Neurology Psychiatry
DX: F41.0 Panic disorder [episodic paroxysmal anxiety] (principal); F31.81 Bipolar II disorder
CPT/HCPCS: 99214

== ENCOUNTER → 2024-12-29 11:20 | Outpatient (BNVA) | payer OTHER, SELFPAY | PROVIDERS: PCP Physician Assistant; Visit Provider Psychiatry & Neurology Psychiatry | DX: F41.0 Panic disorder [episodic paroxysmal anxiety] (principal); F31.81 Bipolar II disorder; Z71.89 Other specified counseling | CPT/HCPCS: 99212 ==

== ENCOUNTER 2025-05-01 10:16 | Outpatient (REF) | payer OTHER, SELFPAY ==
--- OUTSIDE RECORDS SUMMARY | 2025-05-01 10:54 | XMS_ITS | Patient Health Record ---
Author Organization [facility] Address [address] [place] [address] Care Team Providers Care Chief Service Observer Name Role Phone Hussein Almeida Primary Care Provider UnavailRancoh Holder [phone] Reason For Referral No Information Medications Medication [...] W/U Status Risk Notes Problem Pre-surgery evaluation ([id number]) Other specified pre-operative examination (V72.83) Active confirmed Problem Colon cancer screening (V76.51) Active confirmed Encounters Encounter Location Date Provider Diagnosis [facility] [address] [place] [phone] 08/26/2024 Ranch[facility] Ellison Plan Of Treatment Future Test Test Name Order Date COLONOSCOPY 07/05/2014 Insurance Providers Payer Name Payer Address Payer Phone Subscriber Number Group Number Insured Name Patient Relationship to Insured Coverage Start Date Coverage End Date [facility] [address] [place] [address] [id number] JANESSA WhartonSHARAN Self - patient is the insured Medical (General) History Medical History History ICD Code [place] 2006- has 1 stent in-- bl ood transfusion after heart attack in relation to bleeding in the groin from the cardiac cath---no problems since then--had a neg ETT [place]ier [place] [address] Leon Denmary DM,CVA,Lung disease,renal disease Hypothyroidism Depression/Bipolar Hyperlipidemia Reports a negative colonoscopy > 10 yrs ago
[2025-05-01 10:57] LABS: Hematocrit 47.0 % (37.0-47.0); Hemoglobin 15.5 g/dl (12.0-16.0); Mean Corpuscular HGB Conc 33.0 g/dl (31.0-35.0); Mean Corpuscular Hemoglobin 30.4 pg (27.0-33.0); Mean Corpuscular Volume 92.2 fL (80.0-98.0); NRBC Abs Auto 0.000 X10*3/uL (0.0-0.012); NRBC Pct Auto 0.0 /100WBC (0.0-0.2); Platelet Count 137 X10*3/uL (160-400); Red Blood Count 5.10 X10*6/uL (4.20-5.50); White Blood Count 5.5 X10*3/uL (4.8-10.8)
[2025-05-01 11:46] LABS: Alanine Aminotransferase 24 U/L (0-31); Albumin Level 4.1 g/dL (3.5-5.0); Alkaline Phosphatase 86 U/L (39-117); Anion Gap 13 (12-20); Aspartate Amino Transferase 28 U/L (5-31); Blood Urea Nitrogen 10 mg/dL (9-16); Calcium 9.2 mg/dL (8.4-10.2); Carbon Dioxide 28 mmol/L (22-29); Chloride 111 mmol/L (96-108); Cholesterol 163 mg/dL (<200); Estimated Glomerular Filt Rate > 60; HDL Cholesterol 53 mg/dL (>40); Potassium 4.2 mmol/L (3.3-5.1); Sodium 148 mmol/L (135-145); Total Protein 6.5 g/dL (6.5-8.0); Triglycerides 147 mg/dL (<150)
== END 2025-05-01 10:17 | disposition home or self-care (01) ==
LOC: HO.LAB 10:16
PROVIDERS: PCP Physician Assistant; Visit Provider Physician Assistant
DX: I25.118 Atherosclerotic heart disease of native coronary artery with other forms of angina pectoris (principal); E03.9 Hypothyroidism, unspecified
CPT/HCPCS: 36415; 80053; 80061; 84443; 85027

== ENCOUNTER 2025-05-17 10:57 | Outpatient (AMB) | payer OTHER, SELFPAY ==
--- OUTSIDE RECORDS SUMMARY | 2024-09-07 12:00 | XMS_ITS ---
Author Organization [facility] Address [address] [place] [phone] Care Team Providers Care Aquatic Performer Name Role Phone Hussein Almeida Primary Care Provider UnavailRancho Holder [phone] REASON FOR VISIT Patient presents today for a recall colonoscopy Encounters Encounter Location Date Provider Diagnosis [facility] [address] [place] [phone] 09/07/2024 Rancho Ellison Plan Of Treatment No Information Progress Notes * RIDDLE SHARAN STOLL PDO B:1950 (74 yo F)Acc No.[id number]:09/07/2024 Progress Notes Patient: SUBHASH ROWELLALBERT Castillo Provider: Radha Ellison MD :1950 A ge:74 Y S ex:Female Date:09/07/2024 [facility] Pcp:Hussein Almeida Subjective: * Chief Complaints: * [...] Ellison MD Date: 1 11/08/2023 Generated for Kauri cristela/James/eTransmitting on: 0 05/17/2025 11:51 AM EDT
--- NOTE | 2025-05-17 11:18 | A.OFFPC_ITS ---
Vital Signs 05/17/25 11:19 Height 5 ft 7 in Weight 190 lb 8 oz BMI 29.8 BP 124/72 Blood Pressure Location Lt brachial Position Sitting Respiration 18 Pulse 52 Pulse Source Pulse Oximeter Temp 96.9 F Temp Source Temporal Artery Scan Pulse Oximetry (%) 95 Oxygen Delivery Method Room Air Intake Visit Reasons: Annual Exam Web Worker Required: No Accompanied by: Self / Same As Patient Allergies alendronate sodium Allergy (Unknown, Verified 05/17/25 11:20) stomach upset sulfamethoxazole Allergy (Unknown, Verified 05/17/25 11:20) ITCHING trimethoprim Allergy (Unknown, Verified 05/17/25 11:20) ITCHING clindamycin Adverse Reaction (Intermediate, Verified 05/17/25 11:20) Abdominal Pain Medication List - Last Reconciled 05/17/25 by Hussein Almeida PA-C alprazolam 0.25 mg PO TID aspirin divalproex ER 250 mg PO DAILY lifitegrast 5% (Xiidra) 1 drp ophthalmic (eye) BID loteprednol etabonate 0.5% 1 drp ophthalmic (eye) TID rosuvastatin 40 mg PO DAILY Synthroid (levothyroxine) 88 mcg PO DAILY 90 days NS timolol maleate 0.5% 1 drp ophthalmic (eye) QAM topiramate 50 mg PO DAILY Tobacco use date assessed: 05/17/25 Fall risk assessment: No Falls in past year Last assessed Fall Risk: 05/17/25 Dental Screening Dental Screen Date: 05/17/25 Did you have a dental visit in the last 12 months?: No Did you have a dental problem in the last 6 months where you did not have access to dental care?: No Was dental information given to patient?: No HPI Annual Exam HPI Details Patient is a 74-year-old female here today for follow-up visit.? Patient has a past medical history significant for bipolar disorder, generalized anxiety disorder, coronary artery disease, glaucoma, hypothyroidism. Concern--> has a skin lesion over patient's forehead that she is followed by Dermatology for. She recently had gotten a biopsy in his as waiting biopsy results. .. Hypothyroid: Most recent Tsh stable .? Continues on levothyroxine 88 mcg. ? Patient has been working in a better eating habits and has been walking daily.? Of note has lost weight since last office visit PLAN: ? Will continue to use? levothyroxine 88mcg on a daily basis. .. CAD: ? Patient continues on statin and anti-platelet therapy.? She did have a small heart attack in 2019 to which she was evaluated by Cardiology and did go to [facility] for cardiac catheterization though no? stent placement. .. Bipolar disorder: IS followed by Dr Byers and Dr. Simeon. .? She feels stable on her current mental health medications that are managed by her psychiatrist. Colonoscopy: Dr Ellison in 2013, polyp found benign, repeat 10 years, PATIENT DECLINED ANY FURTHER COLORECTAL CANCER SCREENING Mammogram: declines mammo Vaccines: Up-to-date with COVID vaccine and tetanus vaccine, declines PCV , declines shingles. declines flu vaccine Laboratory Tests 06/09/24 05/01/25 10:45 10:25 Hgb 16.4 H 15.5 Sodium 148 H Creatinine 0.83 Fasting Glucose 101 H Cholesterol 163 LDL Cholesterol, C alc 81 TSH 1.48 PFSH Medical History Panic disorder COVID-19 virus infection Absolute glaucoma, bilateral Skin lesion of face Hypothyroidism CAD (coronary artery disease) Bipolar 1 disorder Surgical History H/O cardiac catheterization No pertinent past surgical history Family History Father No problems noted. Mother Chronic mental illness Family/Other Chronic mental illness Social History Housing: House Alcohol intake: never Patient Tobacco Use Status: Never used Tobacco e-Cigarette/Vaping Use: Never Used Second Hand Smoke Exposure: No service: No Current occupational status: retired Cognitive needs: No Hearing needs: No Vision needs: Yes (Glasses) Questionnaire PHQ-9 Over the last 2 weeks, how often have you been bothered by any of the following problems? 1. Little interest or pleasure in doing things: not at all 2. Feeling down, depressed, or hopeless: not at all 3. Trouble falling or staying asleep, or sleeping too much: not at all 4. Feeling tired or having little energy: not at all 5. Poor appetite or overeating: not at all 6. Feeling bad about yourself - or that you are a failure or have let yourself or your family down: not at all 7. Trouble concentrating on things, such as reading the newspaper or watching television: not at all 8. Moving or speaking so slowly that other people could have noticed. Or the opposite - being so fidgety or restless that you have been moving around a lot more than usual: not at all 9. Thoughts that you would be better off or of hurting yourself in some way: not at all Total score: 0 Depression Screening Interpretation: Negative Depression Screening Done: Yes 48681 - PHQ-9 Billing: Yes Source: Developed by Drs. Rancho Post, Emelia Echeverria, Ray Jeter and colleagues, with an educational joselyn from [employer]. Thrive Questionnaire Date Thrive assessed: 05/17/25 AUDIT C Alcohol Use Questionnaire (AUDIT-C) 1. How often do you have a drink containing alcohol?: Never Total Score: 0 MACIEL-7 AMB Questionnaire MACIEL-7 Date MACIEL - 7 assessed: 05/17/25 Feeling nervous, anxious, or on edge: 0 = Not at all Not being able to stop or control worryin = Not at all Worrying too much about different things: 0 = Not at all Trouble relaxin = Not at all Being so restless that it is hard to sit still: 0 = Not at all Becoming easily annoyed or irritable: 0 = Not at all Feeling afraid as if something awful might happen: 0 = Not at all Total MACIEL-7 score (0-4 normal; 5-9 mild; 10-14 moderate; 15-21 severe): 0 Source: Developed by Drs. Rancho Post, Emelia Echeverria, Ray Jeter and colleagues, with an educational joselyn from [employer]. MACIEL-7 Assessment Billing MACIEL-7 Assessment Tool: MACIEL-7 Assessment 21708 Review of Systems Const Denies body aches, Denies chills, Denies excessive sweating, Denies fatigue, De nies fever(s) and Denies headache(s) Eyes Denies blurry vision ENT Denies dysphagia, Denies vertigo, Denies dizziness, Denies headache(s), Denies hearing loss and Denies tinnitus Card Denies chest pain, Denies chest pain with activity, Denies syncope, Denies irregular heart rhythm and Denies dyspnea Resp Denies chest congestion, Denies cough, Denies hemoptysis, Denies dyspnea and Denies wheezing GI Denies abdominal pain, Denies melena, Denies hematochezia, Denies coffee ground emesis, Denies dysphagia, Denies diarrhea, Denies nausea and Denies vomiting Denies urinary frequency, Denies dysuria, Denies urinary hesitancy and Denies urinary urgency Musc Denies arthralgias, Denies limited range of motion, Denies muscle cramps and Denies muscle weakness Skin/Breast Denies rash and Denies skin ulcer Neuro Denies Abnormal speech present, Denies confusion, Denies vertigo, Denies dizziness, Denies syncope, Denies headache(s), Denies memory loss and Denies seizure-like activity Psych Denies anxiety, Denies confusion, Denies depression, Denies memory loss, Denies panic attacks and Denies paranoia Endo Denies excessive sweating, Denies fatigue, Denies flushing, Denies polydipsia and Denies polyuria Aller/Immun Denies wheezing Physical exam (Primary Care) Vital Signs: Last Vital Signs Temp 96.9 F 05/17/25 11:19 Pulse 52 05/17/25 11:19 Resp 18 05/17/25 11:19 BP 124/72 05/17/25 11:19 Pulse Ox 95 05/17/25 11:19 Oxygen Delivery Method Room Air 05/17/25 11:19 BMI result Body Mass Index 29.8 Tobacco/Smoking Status: Tobacco use Status Tobacco use date assessed 05/17/25 05/17/25 11:30 Patient Tobacco Use Status Never used Tobacco 05/17/25 11:30 e-Cigarette/Vaping Use Never Used 05/17/25 11:30 PHQ-9: PHQ-9 Score PHQ-9: Total score 0 05/17/25 11:30 Depression Screening Interpretation: Negative Thrive Assessment: Date of Thrive Assessment Date Thrive assessed 05/17/25 05/17/25 11:30 Const General: cooperative, comfortable, no acute distress, alert and awake; No confusion Orientation/consciousness: oriented to person, oriented to place, patient oriented x3 and No confusion HENMT Head: Yes normocephalic Ears: external ears normal and TM's normal bilaterally Face and sinus: No sinus tenderness Mouth: Normal oral and palatal mucosa present and tongue normal Teeth and gingiva: dentition normal and gingiva normal Throat: Yes posterior oropharynx normal, Yes tonsils normal and Yes uvula midline Eyes Conjunctivae: conjunctivae normal Sclerae: sclerae normal Pupils: Equal, round and reactive pupils present EOM: EOMs intact bilaterally Direct Ophthalmoscopy: No no photophobia Neck Neck: Yes no lymphadenopathy, No tender and Yes no JVD Thyroid: Thyroid normal Carotids: no bruits Chest Chest palpation & inspection: no tenderness Resp Effort & Inspection: normal respiratory effort, no audible wheezes, not labored and no stridor Auscultation: no crackles, no rales, no rhonchi and no wheezes Cardio Jugular venous distension: no JVD Rate: regular rate, not bradycardic and not tachycardic Rhythm: regular rhythm Bruits: no carotid bruits Peripheral pulses: Peripheral pulses 2+ throughout GI Inspection: Yes normal to inspection, No abdominal wall ecchymosis and No visible herniation Palpation (GI): Soft to palpation, nontender, no guarding, not rigid and No hepatosplenomegaly present Auscultation: normoactive bowel sounds General: Yes no CVA tenderness Back/Spine/Pelvis Back: no CVA tenderness and No back tenderness Cervical Spine: cervical ROM normal Thoracic/Lumbar Spine: thoracic and lumbar spine normal to inspection, straight leg raise negative bilaterally, No thoraco-lumbar ROM limited and No lumbar spinal tenderness Skin Lesions: no lesions Rashes: no rashes Wounds: no wounds Neuro General: oriented to person, oriented to place, patient oriented x3, CN's II-XI intact bilaterally and No confusion Cranial nerves: Yes Equal, round and reactive pupils present and Yes Normal accommodation reflex present Cognition (Neuro): normal cognition Speech: No Abnormal speech present Gait exam (Neuro): Normal gait present Motor exam (neuro): 5/5 motor strength present throughout Extrem Right upper extremity: full ROM; no cyanosis Left upper extremity: full ROM; no cyanosis Right lower extremity: no edema Left lower extremity: no edema Psych Appearance: grossly normal Mental Status: mental status grossly normal Affect: normal affect Attitude: cooperative Thought process: Normal thought process present Coding Level of Care Code Est Pt Prev Care >65y(53225) Diagnoses Annual physical exam Z00.00 Bipolar 1 disorder F31.9 Thrombocytopenia D69.6 Coronary artery disease of [place] artery of [place] heart with stable angina pectoris I25.118 Coronary Disease-Associated Artery/Lesion type: [place] artery [place] vs. transplanted heart: [place] heart Associated angina: with stable angina Hypothyroidism, unspecified type E03.9 Hypothyroidism type: unspecified Colon cancer screening Z12.11 Elevated fasting blood sugar R73.01 Additional Codes MACIEL-7 Assessment Billing - MACIEL-7 Assessment Tool: MACIEL-7 Assessment 23690 ([id number]) PHQ-9 - 19682 - PHQ-9 Billing: Yes ([id number]) Assessment & Plan Assessment & Plan (1) Annual physical exam: Code(s): Z00.00 - Encounter for general adult medical examination without abnormal findings Category: Medical Plan: As per HPI (2) Bipolar 1 disorder: Code(s): F31.9 - Bipolar disorder, unspecified Category: Medical Plan: Patient continues to follow psychiatrist and a psychologist who manage her mental health medications. She feels stable from a mental health point of view. (3) Thrombocytopenia: Code(s): D69.6 - Thrombocytopenia, unspecified Category: Medical Plan: Most recent CBC showing stable platelet counts. No reports of bleeding or bruising. (4) CAD (coronary artery disease): Code(s): I25.10 - Atherosclerotic heart disease of [place] coronary artery without angina pectoris Category: Medical Qualifiers: Coronary Disease-Associated Artery/Lesion type: [place] artery [place] vs. transplanted heart: [place] heart Associated angina: with stable angina Qualified Code(s): I25.118 - Atherosclerotic heart disease of [place] coronary artery with other forms of angina pectoris Plan: Patient has a history of coronary artery disease. She otherwise denies any chest discomforts, dizziness or shortness of breath. She continues on statin therapy. LDL to be optimally below 70 (5) Hypothyroidism: Code(s): E03.9 - Hypothyroidism, unspecified Category: Medical Qualifiers: Hypothyroidism type: unspecified Qualified Code(s): E03.9 - Hypothyroidism, unspecified Plan: Continues with levothyroxine 88 mcg daily. Most recent TSH has been stable. (6) Colon cancer screening: Code(s): Z12.11 - Encounter for screening for malignant neoplasm of colon Category: Medical Plan: Declines any further colon cancer screening (7) Elevated fasting blood sugar: Code(s): R73.01 - Impaired fasting glucose Category: Medical Plan: Noted slight elevation in her fasting blood sugar. She will work on better eating habits. Will check an A1c for next visit. Orders: Orders UA CC w/rflx Micro + Cult Today E03.9 - Hypothyroidism, unspecified, R30.0 - Dysuria Hemoglobin A1c Today R73.01 - Impaired fasting glucose Lipid Panel Today I25.118 - Atherosclerotic heart disease of [place] coronary artery with other forms of angina pectoris Comprehensive [place]. Panel Fast Today I25.118 - Atherosclerotic heart disease of [place] coronary artery with other forms of angina pectoris TSH reflex Free T4 Today E03.9 - Hypothyroidism, unspecified Complete Blood Count no Diff Today D69.6 - Thrombocytopenia, unspecified
[2025-05-17 11:19] VITALS: BP 124/72; PULSE 52; RESP 18; TEMP 36.1; O2SAT 95; BMI 29.8
--- OUTSIDE RECORDS SUMMARY | 2025-05-17 11:51 | XMS_ITS | Patient Health Record ---
Author Organization [facility] Address [address] [place] [id number] Care Team Providers Care Skilled Nursing Facilities Professional Name Role Phone Hussein Almeida Primary Care Provider UnavailRancho Holder [phone] Reason For Referral No Information Medications Medication [...] W/U Status Risk Notes Problem Pre-surgery evaluation ([id number]) Other specified pre-operative examination (V72.83) Active confirmed Problem Colon cancer screening (V76.51) Active confirmed Encounters Encounter Location Date Provider Diagnosis [facility] [address] [place] [id number] 08/26/2024 [facility] Plan Of Treatment Future Test Test Name Order Date COLONOSCOPY 07/05/2014 Insurance Providers Payer Name Payer Address Payer Phone Subscriber Number Group Number Insured Name Patient Relationship to Insured Coverage Start Date Coverage End Date [facility] [address] [place] [address] [id number] JANESSA WhartonSHARAN Self - patient is the insured Medical (General) History Medical History History ICD Code NV 2006- has 1 stent in-- bl ood transfusion after heart attack in relation to bleeding in the groin from the cardiac cath---no problems since then--had a neg ETT earier [place] [address] Leon Denmary DM,CVA,Lung disease,renal disease Hypothyroidism Depression/Bipolar Hyperlipidemia Reports a negative colonoscopy > 10 yrs ago
== END 2025-05-17 11:52 | disposition home or self-care (01) ==
LOC: HO.HMCH 10:57
PROVIDERS: PCP Physician Assistant; Visit Provider Physician Assistant
DX: Z00.00 Encounter for general adult medical examination without abnormal findings (principal); F31.9 Bipolar disorder, unspecified; D69.6 Thrombocytopenia, unspecified; I25.118 Atherosclerotic heart disease of native coronary artery with other forms of angina pectoris; E03.9 Hypothyroidism, unspecified; Z12.11 Encounter for screening for malignant neoplasm of colon; R73.01 Impaired fasting glucose

== ENCOUNTER → 2025-05-17 10:57 | Outpatient (BNVA) | payer OTHER, SELFPAY | PROVIDERS: PCP Physician Assistant; Visit Provider Physician Assistant | DX: Z00.00 Encounter for general adult medical examination without abnormal findings (principal); F31.9 Bipolar disorder, unspecified; F41.1 Generalized anxiety disorder; I25.10 Atherosclerotic heart disease of native coronary artery without angina pectoris; E03.9 Hypothyroidism, unspecified; D69.6 Thrombocytopenia, unspecified; I25.118 Atherosclerotic heart disease of native coronary artery with other forms of angina pectoris; R73.01 Impaired fasting glucose | CPT/HCPCS: 96127; 99397 ==

== ENCOUNTER 2025-07-17 10:41 | Outpatient (AMB) | payer OTHER, SELFPAY ==
--- OUTSIDE RECORDS SUMMARY | 2024-09-07 12:00 | XMS_ITS ---
Author Organization [facility] Address [address] [place] [id number] Care Team Providers Care Housekeeping Assistant Name Role Phone Hussein Almeida Primary Care Provider Rancho Coreas [phone] REASON FOR VISIT Patient presents today for a recall colonoscopy Encounters Encounter Location Date Provider Diagnosis [facility] [address] [place] [id number] 09/07/2024 Rancho Ellison Plan Of Treatment No Information Progress Notes * RIDDLE SHARAN STOLL PDO B:1950 (74 yo F)Acc No.[id number]:09/07/2024 Progress Notes Patient: SUBHASH ROWELLALBERT Castillo Provider: Radha Ellison MD :1950 A ge:74 Y S ex:Female Date:09/07/2024 [facility] Pcp:Hussein Almeida Subjective: * Chief Complaints: * 1 . Patient presents today for a recall colonoscopy. * Medical History: Objective: * Vitals: Assessment: Plan: * Treatment: * * The named appointment provid er may or may not be the originator of this progress note, and it is not deemed complete until electronically signed by the appointment provider. Sign off status: Pending * Provider: Radha Ellison MD Date: 1 11/08/2023 Generated for Suni archibald/James/eTransmitting on: 01:07 PM EDT
--- NOTE | 2025-07-17 11:11 | A.OFFPSYCH_ITS ---
Intake Intake Visit Reasons: depression Allergies alendronate sodium Allergy (Unknown, Verified 05/17/25 11:20) stomach upset sulfamethoxazole Allergy (Unknown, Verified 05/17/25 11:20) ITCHING trimethoprim Allergy (Unknown, Verified 05/17/25 11:20) ITCHING clindamycin Adverse Reaction (Intermediate, Verified 05/17/25 11:20) Abdominal Pain HPI- Psychiatric Chief Complaint: depression HPI Narrative: Pt seen in f/u mood has been good generally grandson has been doing well . Patient continues to be quite stable I have encouraged her sometimes to taper down on alprazolam but has been stable on current regimen and doing well. Denies any current cognitive issues or acute medical problems. No rand or significant depression anxiety has been in good control things stable at home. Patient seems much less ruminating than she has in the past Past Psychiatric History: History of bipolar disorder was diagnosed many years ago in [place] has been on alprazolam for many years for anxiety panic generally with good effect rare periods of overuse Mental Status Exam Mental Status Exam Patient Appearance: Well Grooomed Patient Orientation: Person, Place, Time and Situation Level of Consciousness: Awake and Appropriate Patient Behavior: Appropriate Mood Description: Appropriate and Cheerful Affect Description: Calm and Appropriate Ability to Follow Directions: Good Speech Pattern: Clear Memory Description: Intact Hallucinations: None Thought Process: Intact Thought Content: positive for Intact, positive for Goal Oriented, negative for Suicidal Ideation or negative for Homicidal Ideation Judgement: Good Judgement and Insight: Seem to have good judgment and insight no impulsivity no psychosis Assessment and Plan Assessment & Plan (1) Bipolar II disorder in full remission: Status: Acute Code(s): F31.81 - Bipolar II disorder (2) Panic disorder: Status: Acute Code(s): F41.0 - Panic disorder [episodic paroxysmal anxiety] Plan Continue current plan of care no need for medication changes patient has no complaints of side effects psychiatrically stable no evidence of abuse or tolerance. Patient can follow-up with her primary care physician Medications: Refilled alprazolam 0.25 mg PO TID 90 tabs 3RF anxiety topiramate 50 mg PO DAILY 90 tabs 1RF Counseling and coordination of Care Medication management counseling: Effectiveness and Side effects Diagnosis and Prognosis Counseling: Adequacy of current interventions Details-Diagnosis/Prognosis counseling: Patient in general seems to have adjusted Details: I spent [30] minutes reviewing the record, seeing the patient and documenting in the medical record. Counseling provided to the patient/caregiver as outlined below. Addressed patient/caregiver concerns regarding current medication regime including effect mitch adherence. Addressed patient/caregiver concerns regarding diagnosis and prognosis including accuracy of diagnosis, prognosis over time, impact of diagnosis. Addressed patient/caregiver concerns regarding impact of recent stressors. [facility] Medical History Panic disorder COVID-19 virus infection Absolute glaucoma, bilateral Skin lesion of face Hypothyroidism CAD (coronary artery disease) Bipolar 1 disorder Surgical History H/O cardiac catheterization No pertinent past surgical history Family History Father No problems noted. Mother Chronic mental illness Family/Other Chronic mental illness Social History Housing: House Alcohol intake: never Patient Tobacco Use Status: Never used Tobacco e-Cigarette/Vaping Use: Never Used Second Hand Smoke Exposure: No service: No Current occupational status: retired Cognitive needs: No Hearing needs: No Vision needs: Yes (Glasses) Social History: pt 3 children was ostracized by family in past recently inherited large sum of money from her uncle Substance History: ? hx of overuse bev denies any current misuse over sedation alcohol or substance abuse Trauma History: none Coding Level of Care Code Est Pt Level 4 (40585) Diagnoses Bipolar II disorder in full remission F31.81 Panic disorder F41.0
--- OUTSIDE RECORDS SUMMARY | 2025-07-17 13:07 | XMS_ITS | Patient Health Record ---
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 Name Role Phone Hussein Almeida Primary Care Provider UnavailRancho Holder [phone] Reason For Referral No Information Medications Medication SIG (Take, Route, Frequency, Duration) Notes Start Date End Date Status Colyte w Flavor Packs 240 GM as directed Orally as directed; Duration: 1 day(s) 07/05/2014 Active Simvastatin 80 MG [...] W/U Status Risk Notes Problem Pre-surgery evaluation ([id number]) Other specified pre-operative examination (V72.83) Active confirmed Problem Colon cancer screening ([id number]) Colon cancer screening (V76.51) Active confirmed Encounters Encounter Location Date Provider Diagnosis [facility] [address] [place] [phone] 08/26/2024 [facility] Plan Of Treatment Future Test Test Name Order Date COLONOSCOPY 07/05/2014 Insurance Providers Payer Name Payer Address Payer Phone Subscriber Number Group Number Insured Name Patient Relationship to Insured Coverage Start Date Coverage End Date [facility] [address] [place] [address] [id number] JANESSA Wharton, SHARAN Self - patient is the insured Medical (General) History Medical History History ICD Code [place] 2006- has 1 stent in-- bl ood transfusion after heart attack in relation to bleeding in the groin from the cardiac cath---no problems since then--had a neg ETT earier [place] [address] Edward Banks DM,CVA,Lung disease,renal disease Hypothyroidism Depression/Bipolar Hyperlipidemia Reports a negative colonoscopy > 10 yrs ago
== END 2025-07-17 12:08 | disposition home or self-care (01) ==
LOC: HO.HOP 10:41
PROVIDERS: PCP Physician Assistant; Visit Provider Psychiatry & Neurology Psychiatry
DX: F31.81 Bipolar II disorder (principal); F41.0 Panic disorder [episodic paroxysmal anxiety]
CPT/HCPCS: 99214

== ENCOUNTER → 2025-07-17 10:41 | Outpatient (BNVA) | payer OTHER, SELFPAY | PROVIDERS: PCP Physician Assistant; Visit Provider Psychiatry & Neurology Psychiatry | DX: F41.0 Panic disorder [episodic paroxysmal anxiety] (principal); F31.81 Bipolar II disorder | CPT/HCPCS: 99212 ==